=== PATIENT | male | born 1955 | race Caucasian/White ===

== ENCOUNTER → 2018-05-11 06:38 | Outpatient (CLI) | payer BC, SELFPAY ==
--- NOTE | 2018-05-11 | DI.MRI.S_ITS ---
PROCEDURE: MR HEAD/BRAIN WO/W CON INDICATIONS: MOLLARETS SYNDROME TECHNIQUE: Noncontrast axial T1 spin echo, axial T2 fast spin echo, sagittal and axial FLAIR, coronal T2 fast spin echo, axial gradient echo, axial diffusion and ADC through the brain. After the administration of contrast, axial and coronal T1 spin echo with fat saturation through the brain. COMPARISON: [facility], CT, HEAD WITHOUT CONTRAST, 01/04/2014, 0:18. [facility], CT, HEAD WITHOUT CONTRAST, 10/06/2017, 7:57. [facility], CT, HEAD WITHOUT CONTRAST, 09/27/2017, 0:53. FINDINGS: Image quality: Excellent. CSF spaces: Basal cisterns are patent. No extra-axial fluid collections. There is a left posterior fossa presumably arachnoid cyst, grossly unchanged dating back to head CT from 01/04/14. This measures 3.5 x 2.5 cm on axial image 7 series 8. No suspicious associated enhancement is seen. Ventricles are normal in size and shape. Brain: No midline shift. No intracranial bleeds or masses. No abnormal intracranial enhancement. There is cerebral volume loss for age. There is minimal periventricular white matter chronic small vessel ischemic change. The brainstem appears normal. Diffusion-weighted images demonstrate no acute ischemic insults. No chronic ischemic insults. Normal intravascular flow voids are present. Skull and face: Calvarial marrow is normal in signal. Orbits appear normal. Sinuses: Sinuses and mastoids appear clear. IMPRESSION: Unchanged left posterior fossa arachnoid cyst. No suspicious associated enhancement. No abnormal meningeal signal change or enhancement identified. Dictated by: Wicho Alexandre M.D. on 05/11/2018 at 8:21 Approved by: Wicho Alexandre M.D. on 05/11/2018 at 8:30
== END ==
PROVIDERS: PCP Internal Medicine; Visit Provider Psychiatry & Neurology Neurology
DX: G03.2 Benign recurrent meningitis [Mollaret] (principal); G93.0 Cerebral cysts
CPT/HCPCS: 70553

== ENCOUNTER → 2019-03-22 12:05 | Outpatient (CLI) | payer BC, SELFPAY ==
[2019-03-22 13:29] LABS: Cholesterol 177 mg/dL (140-199); HDL Cholesterol 39 mg/dL (40-60); LDL Cholesterol Calculated 103 mg/dL (<100); Triglycerides 177 mg/dL (35-150)
== END ==
PROVIDERS: PCP Internal Medicine; Visit Provider Internal Medicine Cardiovascular Disease
DX: I10 Essential (primary) hypertension (principal)
CPT/HCPCS: 36415; 80061

== ENCOUNTER 2019-06-22 22:18 | Inpatient (IN) | payer BC, SELFPAY ==
[2019-06-22 22:54] VITALS: BP 135/79; PULSE 79; RESP 18; TEMP 36.7; O2SAT 94; BMI 29.9
--- NOTE | 2019-06-22 23:00 | DI.RAD.S_ITS ---
PROCEDURE: XR CHEST 1V INDICATIONS: fever TECHNIQUE: One view of the chest was acquired. COMPARISON: [facility], , CHEST FOR PICC PLACEMENT, 10/06/2017, 16:34. FINDINGS: Surgical changes and devices: None. Lungs and pleura: Lungs are clear. No pleural effusions or pneumothorax. Mediastinum: Mediastinal contours appear normal. Heart size is normal. Bones and chest wall: No displaced fractures. No suspicious bony lesions. Overlying soft tissues appear unremarkable. IMPRESSION: 1. No acute cardiopulmonary disease. Dictated by: Tab Marques M.D. on 06/23/2019 at 8:32 Approved by: Tab Marques M.D. on 06/23/2019 at 8:32
[2019-06-22 23:15] LABS: Add Manual Diff / Slide Review NO; Basophils Absolute Auto 0 /uL (0-100); Basophils Percent Auto 0.5 % (0-2); Eosinophils Absolute Auto 100 /uL (0-450); Hematocrit 45.5 % (41-53); Hemoglobin 16.1 g/dL (13.5-17.5); Lymphocytes Absolute Auto 2500 /uL (1100-4500); Mean Corpuscular HGB Conc 35.2 % (30-36); Monocytes Absolute Auto 400 /uL (0-900); Monocytes Percent Auto 6.2 % (3-14); Neutrophils Absolute Auto 4000 /uL (1500-7000); Neutrophils Percent Auto 56.3 % (50-75); Platelet Count 187 X10^3/uL (150-400); Red Blood Cell Count 5.36 X10^6/uL (4.5-5.9); Red Cell Distribution Width 12.9 % (11.6-14.8); White Blood Cell Count 7.1 X10^3/uL (4.5-11.0)
[2019-06-22 23:25] VITALS: BP 123/74; PULSE 80; RESP 20; O2SAT 95
[2019-06-22] MEDS: SODIUM CHLORIDE 0.9% 1,000 ML 200 ML IV (23:25)
[2019-06-22 23:27] LABS: Lactate (Lactic Acid) 0.7 mmol/L (0.7-2.1)
[2019-06-22 23:28] LABS: Alanine Aminotransferase 39 IU/L (<50); Albumin Globulin Ratio 1.7 (1.0-2.8); Alkaline Phosphatase 68 U/L (38-126); Aspartate Aminotransferase 33 IU/L (17-59); BUN Creatinine Ratio 21.3 (6-22); Bilirubin Total 0.9 mg/dL (0.2-1.3); Blood Urea Nitrogen 17 mg/dL (9-20); Calcium 9.4 mg/dL (8.4-10.2); Carbon Dioxide 25 mmol/L (22-32); Chloride 104 mmol/L (98-107); Estimated Glomerular Filt Rate > 60.0 mL/min (>60); Globulin 2.4 g/dL (1.7-4.1); Glucose 109 mg/dL (80-110); HEMOLYSIS 16 (0-50); Potassium 3.8 mmol/L (3.4-5.1); Sodium 137 mmol/L (137-145); Total Protein 6.4 g/dL (6.3-8.2)
[2019-06-22 23:36] LABS: Procalcitonin < 0.05 ng/mL (<0.5)
[2019-06-22] MEDS: ONDANSETRON 4 MG/2 ML INJ IV (23:40)
[2019-06-22] MEDS: KETOROLAC 60 MG/2 ML VIAL 30 MG IV (23:48)
--- NOTE | 2019-06-22 23:49 | ED.HA ---
HPI - Headache General Chief Complaint: Headache Stated Complaint: states viral meningitis Time Seen by Provider: 06/22/19 23:43 Source: patient, family and old records reviewed Mode of arrival: Ambulatory Limitations: no limitations History of Present Illness HPI Narrative: This is a 63-year-old male who comes to the emergency department with complaint of headache, stiff neck and pain down his spinal cord. Patient states he has not had temperatures greater than 100.4 F but he has felt very warm. He states that he hasn't really been confused but he has felt a little bit off balance. Patient has been nauseated. He has not had active vomiting. He denies chest pain or shortness of breath. No major issues with bowel movements or urination. 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 Most recent was about a year ago he was on IV acyclovir and ultimately went home with a PICC line. He sees Dr. Portillo as his neurologist in [place] and Dr. Carter in with [facility]. Related Data Previous Rx's Medication Instructions Recorded lysine [L-Lysine] 1,000 mg PO Q8H 10 Days #0 cap 09/29/17 acyclovir sodium 1,000 mg IV Q8H #10 day 10/08/17 Allergies Allergy/AdvReac Type Severity Reaction Status Date / Time venlafaxine AdvReac Severe increased Verified 06/22/19 22:54 alcohol need, decreased motivation codeine AdvReac Mild N/V Verified 06/22/19 22:54 naproxen AdvReac Mild PANIC Verified 06/22/19 22:54 ATTACK Review of Systems Review of Systems ROS Unobtainable: All systems reviewed & are unremarkable except as noted in HPI and below Patient History Social History Smoking Status: Never smoker Smoking Status: Never smoker Substance Use Type: does not use Exam Narrative Exam Narrative: GEN: well nourished, well appearing male, alert and oriented x 3, patient appears to be in moderate distress. HEENT: Atraumatic, pupils are equal round reactive to light, extraocular movements are intact, positive for photophobia, nares are clear, TMs are clear with no fluid, there is no conjunctival pallor. Throat is clear without any exudates, erythema, tonsillar enlargement or uvular deviation, patient does have a stiff neck. And pain with flexion. HEART: Regular rate and rhythm without murmur, clicks, rubs. LUNGS:Lungs clear to auscultation, no wheezes, rales, crackles, chest moves symmetrically ABD:bowel sounds normal, soft, non-tender, no guarding, rebound, rigidity, no masses noted, no hepatosplenomegaly :No CVA tenderness MSCL: Non-tender, no muscle atrophy, muscles strength 5/5 upper and lower extremities, full range of motion, gait not tested. NEURO:CN 2-12 intact, sensation normal, reflexes 2/4 upper and lower extremities. SKIN: No rash, no petechiae or vesicles. Initial Vital Signs Initial Vital Signs: Vital Signs Temperature 98.1 F 06/22/19 22:54 Pulse Rate 79 06/22/19 22:54 Respiratory Rate 18 06/22/19 22:54 Blood Pressure 135/79 06/22/19 22:54 Pulse Oximetry 94 06/22/19 22:54 Procedures Lumbar Puncture Time Out Performed: Yes Patient Position: upright Skin Prep: Povidone-Iodine 1% Local Anesthetic: lidocaine 1% Amount of anesthesia used (mL): 3 Spinal Needle Gauge: 20G Interspace Used: L4-L5 Complications: Need to have other Practitioner Attempt and other (patient had near syncope, HR dropped to 30's and BP to 70's. Fluids and laid flat and patient improved. ) Scores GCS [place] coma scale eye opening: Spontaneous Katharina coma scale verbal response: Orientated Katharina coma scale motor response: Obey commands [place] coma scale total score: 15 Course Orders Ordered: ED Orders 06/22/19 22:35 Complete Blood Count AUTO DIFF Stat Comprehensive Metabolic Panel Stat Lactate (Lactic Acid) Stat Procalcitonin Stat 06/22/19 23:00 XR chest 1V Stat 06/22/19 23:20 Blood Culture Stat 06/22/19 23:50 CT head/brain wo con Stat 06/23/19 02:45 CSF culture Stat Cell Count w Diff CSF Stat Glucose CSF Stat HOLD TUBE CSF Stat Meningitis Panel (Film Array) Stat Total Protein CSF Stat 06/23/19 04:45 Consult to Discharge Planning Routine 06/23/19 06:00 Basic Metabolic Panel Routine Complete Blood Count AUTO DIFF Routine Magnesium Routine Bisacodyl (Dulcolax) 10 mg PO DAILY PRN PRN Reason: Constipation Docusate Sodium (Colace) 100 mg PO BID PRN PRN Reason: Constipation Enoxaparin Sodium (Lovenox) 40 mg SUBCUT DAILY ADRIEL Sodium Chloride (Normal Saline 0.9%) 1,000 mls @ 150 mls/hr IV CONT ADRIEL Acyclovir 980 mg/ Dextrose 250 mls @ 250 mls/hr IV Q8H ADRIEL Ketorolac Tromethamine (Toradol) 30 mg IV Q6HR PRN PRN Reason: Pain, Severe (7-10) Stop: 06/28/19 04:43 Morphine Sulfate (Morphine) 2 mg IV Q4HR PRN PRN Reason: Pain, Moderate (4-6) Naloxone HCl (Narcan) 0.2 mg IV Q2MIN PRN PRN Reason: Opiate Reversal Ondansetron HCl (Zofran) 4 mg IV Q8HR PRN PRN Reason: Nausea And Vomiting Discontinued Medications Sodium Chloride (Normal Saline 0.9%) 1,000 mls @ 200 mls/hr IV CONT ADRIEL Last Infusion: 06/23/19 03:00 Dose: 0 mls/hr Documented by: Infusion: 06/23/19 02:22 Dose: 999 mls/hr Documented by: Admin: 06/22/19 23:25 Dose: 200 mls/hr Documented by: MATTHIEU Acyclovir 980 mg/ Dextrose 100 mls @ 100 mls/hr IV NOW ONE Stop: 06/23/19 00:06 Last Infusion: 06/23/19 02:20 Dose: 0 mls/hr Documented by: Admin: 06/23/19 00:51 Dose: 100 mls/hr Documented by: MEGA Ceftriaxone Sodium/Dextrose (Rocephin) 2 gm in 50 mls @ 100 mls/hr IV NOW ONE Stop: 06/23/19 00:36 Last Infusion: 06/23/19 01:00 Dose: 0 mls/hr Documented by: Admin: 06/23/19 00:26 Dose: 100 mls/hr Documented by: MEGA Vancomycin HCl/Dextrose (Vancomycin) 2,000 mg in 400 mls @ 200 mls/hr IV NOW ONE Stop: 06/23/19 02:06 Last Infusion: 06/23/19 05:16 Dose: 0 mls/hr Documented by: Admin: 06/23/19 02:18 Dose: 200 mls/hr Documented by: ANALILIA Sodium Chloride (Normal Saline 0.9%) 1,000 mls @ 200 mls/hr IV CONT ADRIEL Last Admin: 06/23/19 03:25 Dose: 200 mls/hr Documented by: MEGA Acyclovir 980 mg/ Dextrose 100 mls @ 100 mls/hr IV Q8H [facility] Ketorolac Tromethamine (Toradol) 30 mg IV NOW ONE Stop: 06/22/19 23:42 Last Admin: 06/22/19 23:46 Dose: Not Given Documented by: MATTHIEU Ketorolac Tromethamine (Toradol) 30 mg IV NOW ONE Stop: 06/22/19 23:46 Last Admin: 06/22/19 23:48 Dose: 30 mg Documented by: MATTHIEU Morphine Sulfate (Morphine) 4 mg IV NOW ONE Stop: 06/23/19 03:28 Last Admin: 06/23/19 03:34 Dose: 4 mg Documented by: ANALILIA Ondansetron HCl (Zofran) 4 mg IV NOW ONE Stop: 06/22/19 23:32 Last Admin: 06/22/19 23:40 Dose: 4 mg Documented by: MATTHIEU Vital Signs Vital signs: Vital Signs - 8 hr 06/22/19 22:54 06/22/19 23:25 06/23/19 00:00 Temperature 98.1 F Pulse Rate 79 80 74 Respiratory Rate 18 20 19 Blood Pressure 135/79 Blood Pressure [Left Arm] 123/74 125/72 Pulse Oximetry 94 95 95 06/23/19 00:30 06/23/19 01:00 06/23/19 02:05 Temperature Pulse Rate 78 78 89 Respiratory Rate 19 18 20 Blood Pressure Blood Pressure [Left Arm] 117/74 109/65 114/75 Pulse Oximetry 93 92 93 06/23/19 02:15 06/23/19 02:17 06/23/19 02:22 Temperature Pulse Rate 28 L 29 L 32 L Respiratory Rate 12 14 Blood Pressure Blood Pressure [Left Arm] 79/57 L 87/55 L 87/55 L Pulse Oximetry 91 96 06/23/19 02:24 06/23/19 02:27 06/23/19 02:30 Temperature Pulse Rate 50 L 60 74 Respiratory Rate Blood Pressure Blood Pressure [Left Arm] 87/57 L 89/58 L 88/56 L Pulse Oximetry 06/23/19 02:35 06/23/19 03:06 06/23/19 03:20 Temperature Pulse Rate 69 70 65 Respiratory Rate 15 15 18 Blood Pressure Blood Pressure [Left Arm] 101/54 L 98/58 L 95/55 L Pulse Oximetry 96 95 96 06/23/19 03:39 06/23/19 04:07 06/23/19 04:45 Temperature 97.7 F Pulse Rate 65 69 71 Respiratory Rate 16 16 15 Blood Pressure Blood Pressure [Left Arm] 98/59 L 93/54 L 90/53 L Pulse Oximetry 94 93 93 MDM - Headache Lab Data Attestation: I reviewed the patient's lab results. Result diagrams: 06/22/19 22:35 06/22/19 22:35 Labs: Lab Results 06/22/19 06/22/19 06/22/19 Range/Units 22:35 22:35 22:35 WBC 7.1 (4.5-11.0) X10^3/uL RBC 5.36 (4.5-5.9) X10^6/uL Hgb 16.1 (13.5-17.5) g/dL Hct 45.5 (41-53) % MCV 85.0 (80-100) fL MCH 30.0 (26-34) PG MCHC 35.2 (30-36) % RDW 12.9 (11.6-14.8) % Plt Count 187 (150-400) X10^3/uL Neut % (Auto) 56.3 (50-75) % Lymph % (Auto) 36.0 (25-40) % [place] % (Auto) 6.2 (3-14) % Eos % (Auto) 1.0 L (2-4) % Baso % (Auto) 0.5 (0-2) % Neut # (Auto) 4000 (6416-9960) /uL Lymph # (Auto) 2500 (4249-6577) /uL [place] # (Auto) 400 (0-900) /uL Eos # (Auto) 100 (0-450) /uL Baso # (Auto) 0 (0-100) /uL Sodium 137 (137-145) mmol/L Potassium 3.8 (3.4-5.1) mmol/L Chloride 104 (98-107) mmol/L Carbon Dioxide 25 (22-32) mmol/L BUN 17 (9-20) mg/dL Creatinine 0.80 (0.66-1.25) mg/dL Estimated GFR > 60.0 (>60) mL/min BUN/Creatinine Ratio 21.3 (6-22) Glucose 109 (80-110) mg/dL Lactate (0.7-2.1) mmol/L Calcium 9.4 (8.4-10.2) mg/dL Total Bilirubin 0.9 (0.2-1.3) mg/dL AST 33 (17-59) IU/L ALT 39 (<50) IU/L Alkaline Phosphatase 68 (38-126) U/L Total Protein 6.4 (6.3-8.2) g/dL Albumin 4.0 (3.5-5.0) g/dL Globulin 2.4 (1.7-4.1) g/dL Albumin/Globulin Ratio 1.7 (1.0-2.8) Procalcitonin < 0.05 (<0.5) ng/mL CSF Tube Number CSF Volume CSF Appearance (Clear) CSF Color (Colorless) CSF WBC (0-5) MONO/uL CSF RBC RBC /uL CSF Mononuclear WBCs % CSF Polynuclear WBCs % CSF Glucose (40-70) mg/dL CSF Total Protein (12-60) mg/dL CSF C.neoform/gat PCR (Not Detect) CSF CMV DNA (PCR) (Not Detect) CSF Enterovirus (PCR) (Not Detect) CSF E. coli (PCR) (Not Detect) CSF H. influenzae (PCR) (Not Detect) CSF HSV I (PCR) (Not Detect) CSF HSV II (PCR) (Not Detect) CSF HHV 6 (PCR) (Not Detect) CSF L.monocytogenes PCR (Not Detect) CSF N. meningitidis PCR (Not Detect) CSF Parechovirus (PCR) (Not Detect) CSF S. agalactiae (PCR) (Not Detect) CSF S. pneumoniae (PCR) (Not Detect) CSF VZV (PCR) (Not Detecte) 06/22/19 06/23/19 06/23/19 Range/Units 22:35 02:45 02:45 WBC (4.5-11.0) X10^3/uL RBC (4.5-5.9) X10^6/uL Hgb (13.5-17.5) g/dL Hct (41-53) % MCV (80-100) fL MCH (26-34) PG MCHC (30-36) % RDW (11.6-14.8) % Plt Count (150-400) X10^3/uL Neut % (Auto) (50-75) % Lymph % (Auto) (25-40) % [place] % (Auto) (3-14) % Eos % (Auto) (2-4) % Baso % (Auto) (0-2) % Neut # (Auto) (3024-3157) /uL Lymph # (Auto) (9320-2601) /uL [place] # (Auto) (0-900) /uL Eos # (Auto) (0-450) /uL Baso # (Auto) (0-100) /uL Sodium (137-145) mmol/L Potassium (3.4-5.1) mmol/L Chloride (98-107) mmol/L Carbon Dioxide (22-32) mmol/L BUN (9-20) mg/dL Creatinine (0.66-1.25) mg/dL Estimated GFR (>60) mL/min BUN/Creatinine Ratio (6-22) Glucose (80-110) mg/dL Lactate 0.7 (0.7-2.1) mmol/L Calcium (8.4-10.2) mg/dL Total Bilirubin (0.2-1.3) mg/dL AST (17-59) IU/L ALT (<50) IU/L Alkaline Phosphatase (38-126) U/L Total Protein (6.3-8.2) g/dL Albumin (3.5-5.0) g/dL Globulin (1.7-4.1) g/dL Albumin/Globulin Ratio (1.0-2.8) Procalcitonin (<0.5) ng/mL CSF Tube Number 2 CSF Volume 2.0 ml CSF Appearance Clear (Clear) CSF Color Colorless (Colorless) CSF WBC 44 H (0-5) MONO/uL CSF RBC 7 RBC /uL CSF Mononuclear WBCs 46 % CSF Polynuclear WBCs 54 % CSF Glucose 56 (40-70) mg/dL CSF Total Protein 91 H (12-60) mg/dL CSF C.neoform/gat PCR Not detected (Not Detect) CSF CMV DNA (PCR) Not detected (Not Detect) CSF Enterovirus (PCR) Not detected (Not Detect) CSF E. coli (PCR) Not detected (Not Detect) CSF H. influenzae (PCR) Not detected (Not Detect) CSF HSV I (PCR) Not detected (Not Detect) CSF HSV II (PCR) Detected H (Not Detect) CSF HHV 6 (PCR) Not detected (Not Detect) CSF L.monocytogenes PCR Not detected (Not Detect) CSF N. meningitidis PCR Not detected (Not Detect) CSF Parechovirus (PCR) Not detected (Not Detect) CSF S. agalactiae (PCR) Not detected (Not Detect) CSF S. pneumoniae (PCR) Not detected (Not Detect) CSF VZV (PCR) Not detected (Not Detecte) Imaging Data CT scan - head: Radiologist's impression: No acute intracranial abnormality. Age-appropriate exam. Left posterior fossa parasagittal recommend cyst measuring 2.7 x 3.4 x 3.3 cm this is likely incidental Chest x-ray: My impression: Acute process, normal mediastinum, no infiltrate. No cardiomegaly. No fracture. No pneumothorax. [facility] Narrative Medical decision making narrative: Patient comes to the [facility] with concern for viral meningitis, patient states he has had HSV in the past. He states it was HSV 2. He states he is having similar symptoms with headaches, pain down his spine. He hasn't had fevers greater 100.4 F but has felt warm to and hot. Patient CSF does show a positive HSV 2, total protein is 91, WBCs are 44, RBCs are 7 with mononuclear is a 46 and poly new dealer WBCs of 54 and a glucose of 56. Patient's procalcitonin is negative, CBC is in normal range, coags and CMP also do not show major changes. Lactate is 0.7 Patient in have what is likely a vagal episode during lumbar puncture and dropped his heart rate to the 30s and then his blood pressure into the 70s. After lying flat this improved. Anesthesia was asked to come attempt lumbar puncture after this and patient tolerated the procedure well. Patient has had had lower pressures in the 80s since but this is post morphine and maybe secondary to this. Patient is alert and awakens easily. He does fall asleep. Spoke with a nurse practitioner Viral Jaramillo the hospitalist who accepts. I did share patient's specialty doctors. Discharge Plan Departure Patient Disposition: Admitted As Inpatient Clinical Impression: 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 Referrals: Ashley Lovelace MD [Primary Care Provider] -
--- NOTE | 2019-06-22 23:50 | DI.CT.S_ITS ---
PROCEDURE: CT HEAD/BRAIN WO CON INDICATIONS: headache, hx of viral meningitis, hsv 2 TECHNIQUE: Noncontrast 4.5 mm thick angled axial sections acquired from the foramen magnum to the vertex, with coronal and sagittal reformats. For radiation dose reduction, the following was used: automated exposure control, adjustment of mA and/or kV according to patient size. COMPARISON: [facility], CT, HEAD WITHOUT CONTRAST, 10/06/2017, 7:57. FINDINGS: Image quality: Excellent. CSF spaces: Basal cisterns are patent. Ventricles are normal in size and shape. Within the posterior fossa, there is a left paracentral oval cystic collection measuring up to approximately 8.7 x 2.4 cm compatible with arachnoid cyst which appears stable in size compared to the prior study. Brain: No intracranial hemorrhage or mass. [place]-white matter interface is preserved. Skull and face: Calvarium and visualized facial bones are intact, without suspicious lesions. Sinuses: Visualized sinuses and mastoids are clear. IMPRESSION: 1. No acute intracranial abnormality. 2. Stable size of a probable arachnoid cyst in the posterior fossa. Dictated by: Tab Marques M.D. on 06/23/2019 at 7:57 Approved by: Tab Marques M.D. on 06/23/2019 at 8:00
[2019-06-23] VITALS (29 sets, daily range): BP systolic 79–145; BP diastolic 50–75; PULSE 28–89; RESP 12–22; TEMP 36.3–37.8; O2SAT 91–99; BMI 31.4
[2019-06-23] MEDS: CEFTRIAXONE 2 GM/50 ML FROZ.PIGGY IV (00:26)
[2019-06-23] MEDS: WATER IV ×3 (00:51→17:13)
[2019-06-23] MEDS: ACYCLOVIR IV ×3 (00:51→17:13)
[2019-06-23] MEDS: DEXTROSE 5% IV ×3 (00:51→17:13)
[2019-06-23] MEDS: VANCOMYCIN 2,000 MG/400 ML PIGGYBACK 200 MG IV (02:18)
--- NOTE | 2019-06-23 02:24 | PC.NURSE ---
Addendum entered by Pricilla Damian R.N. 06/23/19 02:31: Normal saline rate increased to [address] Wren. Original Note: pt was getting an LP with Dr. Wren, Rn standby. pt started to complain of cold sweats and then reported he felt like he was going to pass out. Pt's HR dropped to 29, color was pale, cold sweats, BP decreased to 79/57. pt was put flat after Lp needle removed immediately after symptoms. pt is currently flat, reports he is feeling better. Dr. Wren at bedside.
[2019-06-23 03:05] LABS: Glucose CSF 56 mg/dL (40-70); Total Protein CSF 91 mg/dL (12-60)
[2019-06-23] MEDS: SODIUM CHLORIDE 0.9% 1,000 ML 200 ML IV (03:25)
--- NOTE | 2019-06-23 03:28 | PC.NURSE ---
Assisted Anethesia doctor with Lp. pt tolerated well, specimens hand carried to the lab,
[2019-06-23] MEDS: MORPHINE 4 MG/ML INJ IV (03:34)
[2019-06-23 03:52] LABS: Appearance CSF Clear (Clear); CSF Tube Number 2; CSF Tube Volume 2.0 mL; Color CSF Colorless (Colorless); Mononuclear WBC CSF 46 %; Red Blood Cell CSF 7 RBC /uL; White Blood Cell CSF 44 MONO/uL (0-5)
[2019-06-23 03:53] LABS: Polynuclear WBC CSF 54 %
[2019-06-23 03:55] LABS: HOLD TUBE CSF YES
[2019-06-23 04:33] LABS: Cryptococcus neoformans/gattii Not Detected (Not Detect); Enterovirus Not Detected (Not Detect); Escherichia coli K1 Not Detected (Not Detect); Haemophilus influenzae Not Detected (Not Detect); Herpes simplex virus 1 Not Detected (Not Detect); Herpes simplex virus 2 Detected (Not Detect); Human herpesvirus 6 Not Detected (Not Detect); Human parechovirus Not Detected (Not Detect); Listeria monocytogenes Not Detected (Not Detect); Neisseria meningitidis Not Detected (Not Detect); Streptococcus agalactiae Not Detected (Not Detect); Streptococcus pneumoniae Not Detected (Not Detect); Varicella Zoster Virus Not Detected (Not Detecte)
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
[2019-06-23] MEDS: SODIUM CHLORIDE 0.9% 1,000 ML 150 ML IV ×2 (05:50→16:08)
[2019-06-23] MEDS: KETOROLAC 30 MG/ML VIAL IV ×3 (06:54→22:21)
[2019-06-23] MEDS: MORPHINE 2 MG/ML INJ IV ×2 (09:51→16:28)
[2019-06-23] MEDS: ENOXAPARIN 40 MG/0.4 ML SYRINGE SUBCUT (10:05)
[2019-06-23] MEDS: ONDANSETRON 4 MG/2 ML INJ IV (11:05)
--- NOTE | 2019-06-23 12:18 | PC.NURSE ---
Addendum entered by Felicita Gilliam R.N. 06/23/19 14:30: Pt reports pain control has been somewhat effective, rates [place] 5-6/10 currently. Toradol given per Emar. Requests grouped care to attempt rest breaks, will be transfering to Acute care. Report called into [facility]. Per Dr Eaton, Pt is no longer to be on Tele. Original Note: Am Shift Pt is A/o up SBA in room, Seizure precautions in place, nausea controlled until 1120, x1 emesis dark liquid. Zofran given with good effect. Toradol and Morphine given for [place] pain. Photosensitive. VSS. Tele in place NSR. at bedside. Discussed outpatient infusion and PICC from previous flare, and eager to plan d/c accordingly when pt medically stable.
[2019-06-23 13:11] LABS: Add Manual Diff / Slide Review NO; Basophils Absolute Auto 0 /uL (0-100); Basophils Percent Auto 0.4 % (0-2); Eosinophils Absolute Auto 0 /uL (0-450); Eosinophils Percent Auto 0.3 % (2-4); Hemoglobin 15.1 g/dL (13.5-17.5); Lymphocytes Absolute Auto 1500 /uL (1100-4500); Lymphocytes Percent Auto 22.6 % (25-40); Mean Corpuscular HGB Conc 35.1 % (30-36); Mean Corpuscular Hemoglobin 30.1 PG (26-34); Mean Corpuscular Volume 85.6 fL (80-100); Monocytes Absolute Auto 400 /uL (0-900); Monocytes Percent Auto 6.1 % (3-14); Neutrophils Absolute Auto 4700 /uL (1500-7000); Neutrophils Percent Auto 70.6 % (50-75); Platelet Count 159 X10^3/uL (150-400); Red Blood Cell Count 5.02 X10^6/uL (4.5-5.9); Red Cell Distribution Width 12.8 % (11.6-14.8); White Blood Cell Count 6.7 X10^3/uL (4.5-11.0)
[2019-06-23 13:16] LABS: Blood Urea Nitrogen 16 mg/dL (9-20); Calcium 8.7 mg/dL (8.4-10.2); Carbon Dioxide 27 mmol/L (22-32); Chloride 106 mmol/L (98-107); Estimated Glomerular Filt Rate > 60.0 mL/min (>60); Glucose 118 mg/dL (80-110); HEMOLYSIS < 15 (0-50); Magnesium 2.1 mg/dL (1.6-2.3); Potassium 4.3 mmol/L (3.4-5.1); Sodium 141 mmol/L (137-145)
[2019-06-23 13:18] LABS: Bacteria Urine None Seen
[2019-06-23 13:30] LABS: Appearance Urine UA CLEAR; Bilirubin Urine UA NEGATIVE (NEGATIVE); Color Urine UA YELLOW; Glucose Urine UA NEGATIVE (Negative); Ketones Urine UA NEGATIVE (NEGATIVE); Leukocyte Esterase Urine UA NEGATIVE (NEGATIVE); Nitrite Urine UA NEGATIVE (Negative); Occult Blood Urine UA NEGATIVE (Negative); Protein Urine UA NEGATIVE (Negative); Specific Gravity Urine UA 1.015 (1.000-1.035); Urobilinogen Urine UA 0.2 E.U./dL (0.2); pH Urine UA 5.5 (4.5-8.0)
[2019-06-23 14:13] LABS: Culture Indicated Urine Cult Not Indicated; RBC Urine 0-1/HPF (0-5/HPF); Squamous Epithelial Cell Urine 0-1 /HPF (0-5/HPF); WBC Urine 0-1/HPF (0-5/HPF)
--- NOTE | 2019-06-23 14:41 | PM.EVENT ---
Event Note Date Patient Seen: 06/23/19 Event Note: The patient is a 63-year-old male with a history of recurrent HSV meningitis. He was admitted to the hospital yesterday with headache fever and neck stiffness. His CSF fluid confirmed 44 WBCs, PCR which was positive for HSV. The patient has been placed on 10 milligrams/kilogram every 8 hours for HSV meningitis. He continues to have some headache. He has some nausea. Patient reports he has had at least 3 episodes per year over the past several years. The patient continues to have some low-grade fever and will be started on Tylenol for this as well. The patient will continue on his usual home medications to include both indomethacin and losartan. Will follow-up with infectious disease from [place] for any additional recommendations.
[2019-06-23] MEDS: ACETAMINOPHEN 325 MG TABLET 650 MG PO (14:48)
--- NOTE | 2019-06-23 14:50 | PC.NURSE ---
1410 Pt arrived from ICU via w/c to room 214. Pt mis A&Ox3. Able to get self into the bed. IVF infusing, Pt denies pain. 1430 Pt on seizure precautions, bed rails padded. Pt temp 100.1, Dr Eaton updated, orders for Tylenol written. Pt given Tylenol 1450. SCD BLE on
--- NOTE | 2019-06-23 16:19 | CM.DPNOTE ---
DCPlanning note: Case received and discussed with CM/DCP team. RN Ashley agrees to do the initial assessment: see her pending notes. Pt was initially in ICU, Dr. Eaton noted in Team Rounds that he was floor care and this afternoon he did move to rm 214.
--- NOTE | 2019-06-23 17:07 | CM.DANOTE ---
DCP assessment: EMR reviewed: Patient is a 63 yr old male who was admitted for viral meningitis. PCP is CAITLYN Lovelace. CM/RN met with patient at the bedside and explained role. Patient was alert and oriented x3 during CM/RN meeting. patient currently lives with is Flora in a single level home in [place]. Patient has a hx of reoccuring Viral Meningitis infections. patient stated he has had 6 occurrences this year alone. Plan is for patient to get a PICC line placed tomorrow and d/c with home infusions for remainder IV infusions set up. Insurance: [employer] 2nd: self pay. Plan: DC home with home infusions for IV medications when ready. patient needs PICC line placed prior to d/c. CM department will follow up tomorrow 06/24/2019 to make sure home infusions is set up for when patient does D/C Ashley Lyn RN Discharge Planning/Care Management Advanced directive, confirm from FAMILY Start: 06/23/19 12:17 Freq: Q24H Status: Active Protocol: Document 06/23/19 12:17 NC (Rec: 06/23/19 12:18 NC [id number]) Advance Directive, confirm on record Time 12:18 Person contacted Copy received No CM Discharge Assessment Start: 06/23/19 16:44 Freq: Status: Active Protocol: Document 06/23/19 16:44 HS (Rec: 06/23/19 16:55 HS [id number]) Discharge Planning Assessment Assigned Surgical Coordinator Ashley Lyn RN DPOA/Assigned Designee Name Flora Enriquez Advance Directives? No Advance Directives on File No History Provided By Patient Has Patient been admitted in last 30 No days? Prior Living Arrangements House Household Members spouse Type of transporation used prior to Relies on Others admit Independent with ADL's Yes Is patient alert and oriented? Yes Caregiver for Another No Discharge Plan Home Referrals Initiated Other Additional Comment infusion solutions. Whiteboard Updated in Patient Room with Yes name and ext. # of Surgical Coordinator Review Status In Process Next Review Type Continued Stay Review
[2019-06-23] MEDS: LOSARTAN 50 MG TABLET 100 MG PO (21:10)
[2019-06-24] MEDS: SODIUM CHLORIDE 0.9% 1,000 ML 150 ML IV ×2 (00:12→08:15)
[2019-06-24] MEDS: MORPHINE 2 MG/ML INJ IV ×3 (00:37→11:03)
[2019-06-24] MEDS: WATER IV ×3 (00:38→17:24)
[2019-06-24] MEDS: ACYCLOVIR IV ×3 (00:38→17:24)
[2019-06-24] MEDS: DEXTROSE 5% IV ×3 (00:38→17:24)
[2019-06-24 05:25] VITALS: BP 136/75; PULSE 77; RESP 16; TEMP 37.6; O2SAT 92
[2019-06-24] MEDS: ONDANSETRON 4 MG/2 ML INJ IV (05:45)
[2019-06-24] MEDS: SODIUM CHLORIDE 0.9% FLUSH 10 ML IV ×2 (08:25→17:24)
[2019-06-24] MEDS: DOCUSATE 100 MG CAPSULE PO (08:29)
[2019-06-24] MEDS: LOSARTAN 50 MG TABLET 100 MG PO (08:29)
[2019-06-24] MEDS: ENOXAPARIN 40 MG/0.4 ML SYRINGE SUBCUT (08:30)
[2019-06-24] MEDS: ACETAMINOPHEN 325 MG TABLET 650 MG PO (08:30)
[2019-06-24] MEDS: INDOMETHACIN 25 MG CAPSULE PO ×3 (08:32→17:23)
[2019-06-24 09:00] VITALS: BP 132/74; PULSE 74; RESP 17; TEMP 36.7; O2SAT 91
--- NOTE | 2019-06-24 09:46 | PC.NURSE ---
Addendum entered by Isi Carpio R.N. 06/24/19 13:02: PAIN - states the earlier morphine and indomethacin helped him relax and declines, given the scheduled indomethacin after to po lunch. Original Note: AM NOTE - pt is awake, speech clear, has ongoing, chronic headache discomfort, 7 on scale 0/10, no medications are really effective, discussed morphine, added tylenol and indomethicine this am when able tolerate breakfast, describes a hx of l foot nerve like discomfort several days prior to adm and then headache, hr 68, +bt, added stool softener this am.
--- NOTE | 2019-06-24 11:38 | PM.PN.1 ---
Subjective Subjective Date Patient Seen: 06/24/19 Interval history: Will Castrejon is a 63-year-old right-handed male with a past medical history significant for recurrent HSV II meningitis, hypertension, remote history of atrial fibrillation not anticoagulated and kidney stones who presented to the ED with headache stiff neck and back pain. The patient is resting in bed. He does not appear uncomfortable. He continues to endorse mild neck stiffness and headache which he currently rates a + 7/10 in severity and controlled with morphine. He also complains of mild restrictive feeling when breathing in deeply. He has no other complaints and denies ear pain, vision changes, lightheadedness or dizziness, rhinitis, sore throat, cough, shortness of breath, chest pain, abdominal pain, nausea, vomiting, fever, chills, dysuria, or diarrhea. He has not had a bowel movement since admission and a bowel regimen has been implemented. He is voiding without difficulty. He is up ambulating independently without assistance. Exam Vital Signs (past 8 hours): - 06/24/19 05:25 06/24/19 09:00 Temperature 99.6 F 98.1 F Pulse Rate 77 74 Respiratory Rate 16 17 Blood Pressure 136/75 132/74 Pulse Oximetry 92 91 Oxygen Delivery Method Room Air Oxygen Flow Rate 0 Narrative Exam Narrative: General: Older gentleman lying in bed and in no acute distress, well-developed, well-nourished, appropriately interactive. HEENT: Normocephalic, atraumatic. External ears without defect. Pupils equal, round, and reactive to light. Anicteric sclerae, moist conjunctivae, and no lid lag. Oropharynx free of erythema and cobble stoning with moist mucosa. Neck: Supple with full range of motion. No significant noticeable neck stiffness. No jugular venous distension. No lymphadenopathy or thyromegaly. Cardiovascular: Regular rate and rhythm without murmurs, rubs, or gallops appreciated. Pulmonary: Clear to auscultation bilaterally without crackles, wheezes, or rhonchi. Normal respiratory effort with no use of accessory muscles. Abdomen: Soft, bowel tones present, nontender, nondistended. No hepatosplenomegaly or masses appreciated. Extremities: No clubbing, cyanosis, or edema. Skin: Normal temperature, turgor, and texture; no rash, ulcers, or subcutaneous nodules appreciated. Neurological: Cranial nerves grossly intact. No focal neurological deficits. Patient endorses neck stiffness but does not demonstrate meningeal symptoms. Psychiatric: Normal mood and flat affect. Alert and oriented to person, place, and time. Objective Labs Result Diagrams: 06/25/19 07:35 06/25/19 07:35 Labs: Laboratory Results - last 24 hr 06/23/19 06/23/19 06/23/19 12:56 12:56 13:17 WBC 6.7 RBC 5.02 Hgb 15.1 Hct 43.0 MCV 85.6 MCH 30.1 MCHC 35.1 RDW 12.8 Plt Count 159 Neut % (Auto) 70.6 Lymph % (Auto) 22.6 L [place] % (Auto) 6.1 Eos % (Auto) 0.3 L Baso % (Auto) 0.4 Neut # (Auto) 4700 Lymph # (Auto) 1500 [place] # (Auto) 400 Eos # (Auto) 0 Baso # (Auto) 0 Sodium 141 Potassium 4.3 Chloride 106 Carbon Dioxide 27 BUN 16 Creatinine 0.80 Estimated GFR > 60.0 BUN/Creatinine Ratio 20.0 Glucose 118 H Calcium 8.7 Magnesium 2.1 Urine Color Yellow Urine Appearance Clear Urine pH 5.5 Ur Specific [place] 1.015 Urine Protein Negative Urine Glucose (UA) Negative Urine Ketones Negative Urine Occult Blood Negative Urine Nitrate Negative Urine Bilirubin Negative Urine Urobilinogen 0.2 Ur Leukocyte Esterase Negative Urine RBC 0-1/hpf Urine WBC 0-1/hpf Ur Squamous Epith Cells 0-1 /hpf Urine Bacteria None seen Ur Culture Indicated? Cult not indicated Assessment & Plan Assessment & Plan narrative: Will Castrejon is a 63-year-old right-handed male with a past medical history significant for recurrent HSV II meningitis, hypertension, remote history of atrial fibrillation not anticoagulated and kidney stones who presented to the ED with headache stiff neck and back pain. 1. Recurrent HSV II meningitis ([place] Meningitis), acute on chronic, present on admission. Active. -Patient reports this is a typical presentation with symptoms beginning 1 day ago and becoming progressive. -LP performed in the ED demonstrated HSV II meningitis. -Continue acyclovir 10 mg/kg every 8 hours and indomethacin 25 mg up to 3 times daily with food to decrease cytokine release. -Continue supportive care with acetaminophen 650 every 6 hours, Toradol 30 mg IV every 6 hours or morphine 2 mg IV every 4 hours all as needed for pain and Zofran 4 mg every 6 hours as needed for nausea. -Patient is under the care of Infectious Disease in [place], Dr. Perez. Discussed patient with Dr. Perez who discontinued prophylactic acyclovir as this did not prevent or delay recurrence and recommended continuing IV acyclovir while hospitalized and discharging on bowel cycle of ear 1 g 3 times daily for 2 week total course. 2. Newly diagnosed seizure disorder, absence seizures, present on admission. Stable. -Patient has had no evidence of seizure during hospitalization thus far. -Patient is under the care of Neurology in [place], Dr. Portillo, who had prescribed Keppra but patient has declined medication due to concern for side effects. -Patient is not currently treated with antiepileptics. -Continue seizure precautions. 3. Hypertension, chronic, present on admission. Stable. -Patient blood pressure on admission was 135/79 with SBP dropping to 70's briefly during vasovagal episode. -Continue home losartan 100 mg daily. 4. Paroxysmal atrial fibrillation, chronic, present on admission. Stable. -Patient was in normal sinus rhythm on telemetry in ED. -Patient with past history of episodes of atrial fibrillation and has undergone a full cardiac evaluation with with Dr. Leigh without recurrence. -Patient denies chest pain, palpitations or complaints shortness of breath. Code Status: Full Code VTE prophylaxis: SCDs and Lovenox Disposition: Patient likely to discharge in 1-2 days depending on improvement in headache. Quality VTE Deep Vein Thrombosis/Pulmonary Embolism Present on Admission: Yes
[2019-06-24 13:34] VITALS: BP 140/72; PULSE 73; RESP 17; TEMP 36.8; O2SAT 92
[2019-06-24 15:30] VITALS: BP 125/71; PULSE 60; RESP 18; TEMP 36.9; O2SAT 95
--- NOTE | 2019-06-24 15:43 | CM.DPC ---
DCP Cont: Went ahead and faxed information to [facility], in case patient needs to go home on IV antibiotics. Spoke to Travis at [facility], and he is reviewing insurance. Spoke to Dr. Poon during team rounds. She mentioned that patient may be able to go home on oral antibiotics. She was planning on speaking to Infectious Disease physician, and will let this hospice case manager know. Spoke to Dr. Poon, and she mentioned that she has spoken to Infectious Disease MD, and he should be able to go home on oral antibiotics. Gave Travis at [facility] an update. He will hold on to referral. He did mention that with patient's insurance, there is a 30% co-pay, and that he would have to pay approximately 200.00 a week. P: Travis at [facility] will hold on to referral. At this time, plan is home with oral antibiotics. Lesvia Juan RN/[employer] Operator
[2019-06-24 19:40] VITALS: BP 122/71; PULSE 62; RESP 18; TEMP 36.9; O2SAT 95
[2019-06-24 23:56] VITALS: BP 109/70; PULSE 64; RESP 16; TEMP 36.2; O2SAT 94
[2019-06-25] MEDS: ACYCLOVIR IV ×3 (01:07→17:58)
[2019-06-25] MEDS: SODIUM CHLORIDE 0.9% FLUSH 10 ML IV ×3 (01:07→19:31)
[2019-06-25] MEDS: WATER IV ×3 (01:07→17:58)
[2019-06-25] MEDS: DEXTROSE 5% IV ×3 (01:07→17:58)
[2019-06-25 06:00] VITALS: BP 130/71; PULSE 61; RESP 16; TEMP 36.4; O2SAT 95
[2019-06-25 08:00] LABS: Blood Urea Nitrogen 12 mg/dL (9-20); Calcium 8.8 mg/dL (8.4-10.2); Carbon Dioxide 27 mmol/L (22-32); Chloride 105 mmol/L (98-107); Estimated Glomerular Filt Rate > 60.0 mL/min (>60); Glucose 104 mg/dL (80-110); HEMOLYSIS 16 (0-50); Magnesium 1.9 mg/dL (1.6-2.3); Potassium 4.1 mmol/L (3.4-5.1); Sodium 138 mmol/L (137-145)
[2019-06-25 08:03] LABS: Add Manual Diff / Slide Review NO; Basophils Absolute Auto 0 /uL (0-100); Basophils Percent Auto 0.8 % (0-2); Eosinophils Absolute Auto 100 /uL (0-450); Hematocrit 42.7 % (41-53); Lymphocytes Absolute Auto 1600 /uL (1100-4500); Lymphocytes Percent Auto 32.2 % (25-40); Mean Corpuscular HGB Conc 35.1 % (30-36); Mean Corpuscular Volume 85.5 fL (80-100); Monocytes Absolute Auto 300 /uL (0-900); Monocytes Percent Auto 6.1 % (3-14); Neutrophils Absolute Auto 2900 /uL (1500-7000); Neutrophils Percent Auto 58.9 % (50-75); Platelet Count 150 X10^3/uL (150-400); Red Blood Cell Count 4.99 X10^6/uL (4.5-5.9); Red Cell Distribution Width 12.8 % (11.6-14.8); White Blood Cell Count 4.9 X10^3/uL (4.5-11.0)
[2019-06-25 08:17] LABS: Procalcitonin < 0.05 ng/mL (<0.5)
[2019-06-25 08:57] VITALS: BP 134/78; PULSE 64; RESP 18; TEMP 36.9; O2SAT 92
[2019-06-25] MEDS: LOSARTAN 50 MG TABLET 100 MG PO (09:20)
[2019-06-25] MEDS: ENOXAPARIN 40 MG/0.4 ML SYRINGE SUBCUT (09:20)
[2019-06-25] MEDS: INDOMETHACIN 25 MG CAPSULE PO ×3 (09:20→17:58)
--- NOTE | 2019-06-25 13:27 | PM.PN.1 ---
Subjective Subjective Date Patient Seen: 06/25/19 Interval history: Will Castrejon is a 63-year-old right-handed male with a past medical history significant for recurrent HSV II meningitis, hypertension, remote history of atrial fibrillation not anticoagulated and kidney stones who presented to the ED with headache stiff neck and back pain. The patient is resting in bed comfortably. He continues to endorse mild neck stiffness. His headache is improving and he currently rates a + 7/10 in severity. He has not required any morphine since yesterday evening. His nausea and lightheadedness have completely resolved. He endorses low back pain for which he is unsure if this is related to his meningitis or musculoskeletal from the bed. He has no other complaints and denies vision changes, lightheadedness or dizziness, rhinitis, sore throat, cough, shortness of breath, chest pain, abdominal pain, nausea, vomiting, fever, chills, dysuria, diarrhea, or constipation. He is voiding and eliminating without difficulty. He is up ambulating independently without assistance. Exam Vital Signs (past 8 hours): - 06/25/19 06:00 06/25/19 08:57 Temperature 97.5 F L 98.4 F Pulse Rate 61 64 Respiratory Rate 16 18 Blood Pressure 130/71 134/78 Pulse Oximetry 95 92 Oxygen Delivery Method Room Air Oxygen Flow Rate 0 Narrative Exam Narrative: General: Older gentleman lying in bed and in no acute distress, well-developed, well-nourished, appropriately interactive. HEENT: Normocephalic, atraumatic. External ears without defect. Pupils equal, round, and reactive to light. Anicteric sclerae, moist conjunctivae, and no lid lag. Oropharynx free of erythema and cobble stoning with moist mucosa. Neck: Supple with full range of motion. No significant noticeable neck stiffness. No jugular venous distension. No lymphadenopathy or thyromegaly. Cardiovascular: Regular rate and rhythm without murmurs, rubs, or gallops appreciated. Pulmonary: Clear to auscultation bilaterally without crackles, wheezes, or rhonchi. Normal respiratory effort with no use of accessory muscles. Abdomen: Soft, bowel tones present, nontender, nondistended. No hepatosplenomegaly or masses appreciated. Extremities: No clubbing, cyanosis, or edema. Skin: Normal temperature, turgor, and texture; no rash, ulcers, or subcutaneous nodules appreciated. Neurological: Cranial nerves grossly intact. No focal neurological deficits. Continues to have mild neck stiffness but no other meningeal symptoms. Psychiatric: Normal mood and flat affect. Alert and oriented to person, place, and time. Objective Labs Result Diagrams: 06/25/19 07:35 06/25/19 07:35 Labs: Laboratory Results - last 24 hr 06/25/19 06/25/19 06/25/19 07:35 07:35 07:35 WBC 4.9 RBC 4.99 Hgb 15.0 Hct 42.7 MCV 85.5 MCH 30.0 MCHC 35.1 RDW 12.8 Plt Count 150 Neut % (Auto) 58.9 Lymph % (Auto) 32.2 [place] % (Auto) 6.1 Eos % (Auto) 2.0 Baso % (Auto) 0.8 Neut # (Auto) 2900 Lymph # (Auto) 1600 [place] # (Auto) 300 Eos # (Auto) 100 Baso # (Auto) 0 Sodium 138 Potassium 4.1 Chloride 105 Carbon Dioxide 27 BUN 12 Creatinine 0.60 L Estimated GFR > 60.0 BUN/Creatinine Ratio 20.0 Glucose 104 Calcium 8.8 Magnesium 1.9 Procalcitonin < 0.05 Assessment & Plan Assessment & Plan narrative: Will Castrejon is a 63-year-old right-handed male with a past medical history significant for recurrent HSV II meningitis, hypertension, remote history of atrial fibrillation not anticoagulated and kidney stones who presented to the ED with headache stiff neck and back pain. 1. Recurrent HSV II meningitis (Mollaret Meningitis), acute on chronic, present on admission. Active. -Patient reports this is a typical presentation with symptoms beginning 1 day ago and becoming progressive. -LP performed in the ED demonstrated HSV II meningitis. -Continue acyclovir 10 mg/kg every 8 hours and indomethacin 25 mg up to 3 times daily with food to decrease cytokine release. -Continue supportive care with acetaminophen 650 every 6 hours, Toradol 30 mg IV every 6 hours or morphine 2 mg IV every 4 hours all as needed for pain and Zofran 4 mg every 6 hours as needed for nausea. -Patient is under the care of Infectious Disease in [place], Dr. Perez. Discussed the patient with Dr. Perez who relayed that she discontinued prophylactic acyclovir as this did not prevent or delay recurrence and recommended continuing IV acyclovir while hospitalized and discharging on valacyclovir 1 g 3 times daily for a 2 week total course. 2. Newly diagnosed seizure disorder, absence seizures, present on admission. Stable. -Patient has had no evidence of seizure during hospitalization thus far. -Patient is under the care of Neurology in [place], Dr. Portillo, who had prescribed Keppra but patient has declined medication due to concern for side effects. -Patient is not currently treated with antiepileptics. -Continue seizure precautions. 3. Hypertension, chronic, present on admission. Stable. -Patient blood pressure on admission was 135/79 with SBP dropping to 70's briefly during vasovagal episode. -Continue home losartan 100 mg daily. 4. Paroxysmal atrial fibrillation, chronic, present on admission. Stable. -Patient was in normal sinus rhythm on telemetry in ED. -Patient with past history of episodes of atrial fibrillation and has undergone a full cardiac evaluation with with Dr. Leigh without recurrence. -Patient denies chest pain, palpitations or complaints shortness of breath. Code Status: Full Code VTE prophylaxis: SCDs and Lovenox Disposition: Patient likely to discharge possibly tomorrow at his symptoms continue to improve. Quality VTE Deep Vein Thrombosis/Pulmonary Embolism Present on Admission: Yes
[2019-06-25 13:36] VITALS: BP 126/73; PULSE 63; RESP 16; TEMP 37; O2SAT 93
--- NOTE | 2019-06-25 14:52 | PC.NURSE ---
Neuro: Feels better today, headache less, not gone, didn't want to take anything for it. Still sensative to light but not as much as he was yesterday. Spouse at bedside. Pt verb his feelings regarding having a chronic condition such as viral meningitis. After 30 years he is tired of it. Pt did take a shower today and has been up in the room more. Cont w/poc.
[2019-06-25 15:20] VITALS: BP 134/80; PULSE 68; RESP 18; TEMP 37.1; O2SAT 95
[2019-06-25 20:00] VITALS: BP 131/77; PULSE 64; RESP 18; TEMP 36.8
[2019-06-25 22:10] VITALS: O2SAT 94
[2019-06-26] VITALS: BP 134/78; PULSE 60; RESP 16; TEMP 36.3; O2SAT 96
[2019-06-26] MEDS: ACYCLOVIR IV ×2 (01:07→09:37)
[2019-06-26] MEDS: WATER IV ×2 (01:07→09:37)
[2019-06-26] MEDS: DEXTROSE 5% IV ×2 (01:07→09:37)
[2019-06-26 05:00] VITALS: BP 135/80; PULSE 59; RESP 16; TEMP 36.8; O2SAT 96
[2019-06-26 07:25] VITALS: BP 132/88; PULSE 59; RESP 16; TEMP 36.6; O2SAT 95
[2019-06-26] MEDS: ENOXAPARIN 40 MG/0.4 ML SYRINGE SUBCUT (09:37)
[2019-06-26] MEDS: INDOMETHACIN 25 MG CAPSULE PO (09:37)
[2019-06-26] MEDS: LOSARTAN 50 MG TABLET 100 MG PO (09:37)
--- NOTE | 2019-06-26 10:35 | P.DS_ITS ---
History of Present Illness History of Present Illness Date Patient Seen: 06/25/19 Chief complaint: states viral meningitis Narrative: Written by Terrance RODAS: Mr. Will Castrejon is a 63-year-old right-handed male with history significant for recurrent viral meningitis encephalitis hypertension remote history of atrial fibrillation not anticoagulated and kidney stones who presents to the ER with headache stiff neck and back pain. Patient states his symptoms began yesterday and became progressive. He reports having fevers and chills, nausea and vomiting. He reports a posterior headache with neck pain extending down his back. He has had associated photophobia. Reports having disequilibrium the last few days but not yesterday which she describes as a prodrome to developing meningitis. The patient is also been prescribed Keppra for absence seizures typically around 15 seconds in duration. He has told his neurologist he does not want to use the medication due to side effects. He is currently under the care of Dr. Portillo for Neurology and Dr. Carter for Infectious Disease. He has a remote history of atrial fibrillation and has undergone full cardiac workup with Dr. Leigh including 1 month continuous monitoring without identification of a clear arrhythmia. He has had no chest pain and denies palpitations. He has no shortness of breath or cough. Reports he is predisposed to pneumonia with impaired right diaphragm from an injury romero stained playing ice hockey. He reports no changes in bowel habits and no urinary symptoms. Upon arrival to the ER the patient was found to be afebrile a temperature 98.1?, heart rate of 79, blood pressure 135/79, respirations of 18 saturating 94% on air. Imaging was completed with a head CT which found no acute intracranial abnormalities an age-appropriate exam with a left paracentral posterior fossa arachnoid cyst measuring 2.7 by 3.4 x 3.3 cm, no midline shift, hydrocephalus, acute hemorrhage or infarct. Chest x-ray is obtained which shows no acute cardiopulmonary processes. Laboratory analysis stained which finds a white blood cell count of 7.1, hemoglobin of 16.1, hematocrit of 45.5 and platelets 187. His electrolytes are within limits and has a BUN of 17 with a creatinine is 0.8. His nonfasting glucose is 1 9. His LFTs within normal limits and procalcitonin is negative less than 0.05. And LP is performed during which time the patient had a vasovagal response with heart rate down to 29 and near-syncope with blood pressure dropping to 70s. Patient received fluid bolus with normalization of pressures. A 2nd attempt at LP was completed and sample obtained. CSF is found to be clear and colorless, WBCs are 44, RBCs are 7, mononuclear WBCs are 46 and poly nuclear WBCs are 54. Glucose is 56 and protein is 91. PCR evaluation the CSF reveals a positive finding for HSV 2. The patient is started in the ER on acyclovir 10 milligrams/kilogram and received initial empiric coverage for bacterial meningitis with vancomycin and ceftriaxone. He has received Toradol and morphine for pain and Zofran for nausea. The patient is admitted to the medicine service for HSV meningitis Discharge Providers Provider Date of admission: 06/23/19 06:27 Discharge Date: 06/26/19 Primary care physician: Ashley Lovelace MD Consults: 06/23/19 04:45 Consult to Discharge Planning Routine Comment: Discharge provider: Irene Poon DO Summary Hospital Course Discharge Diagnosis: 1. Recurrent HSV II meningitis (Mollaret Meningitis), acute on chronic, present on admission. Resolving. 2. Newly diagnosed seizure disorder, absence seizures, present on admission. Stable. 3. Hypertension, chronic, present on admission. Stable. 4. Paroxysmal atrial fibrillation, chronic, present on admission. Stable. Hospital Course: Will Castrejon is a 63-year-old right-handed male with a past medical history significant for recurrent HSV II meningitis, hypertension, remote history of atrial fibrillation not anticoagulated and kidney stones who presented to the ED with headache stiff neck and back pain. 1. Recurrent HSV II meningitis (Mollaret Meningitis), acute on chronic, present on admission. Resolving. -Patient presented with severe headache, neck stiffness, nausea, and lightheadedness which is his typical presentation with symptoms beginning day prior to admission and becoming progressive. Headaches significantly improved and patient discharged home. -LP performed in the ED demonstrated HSV II meningitis. -Continued supportive care with acetaminophen 650 every 6 hours, Toradol 30 mg IV every 6 hours or morphine 2 mg IV every 4 hours all as needed for pain and Zofran 4 mg every 6 hours as needed for nausea. -Patient is under the care of Infectious Disease in [place], Dr. Perez. Discussed the patient with Dr. Perez who relayed that she discontinued prophylactic acyclovir as this did not prevent or delay recurrence and recommended continuing IV acyclovir while hospitalized and discharging on valacyclovir 1 g 3 times daily for a 2 week total course. -Continued acyclovir 10 mg/kg every 8 hours and indomethacin 25 mg up to 3 times daily with food to decrease cytokine release. Discharge with prescription for valacyclovir 1 g 3 times daily for 11 additional days to complete 14 days total. Patient has indomethacin prescription at home. Discharge with temporary prescription for hydrocodone 5-325 mg as needed for severe headache. 2. Newly diagnosed seizure disorder, absence seizures, present on admission. Stable. -Patient has had no evidence of seizure during hospitalization thus far. -Patient is under the care of Neurology in [place], Dr. Portillo, who had prescribed Keppra but patient has declined medication due to concern for side effects. -Patient is not currently treated with antiepileptics. -Continued seizure precautions. 3. Hypertension, chronic, present on admission. Stable. -Patients blood pressure on admission was 135/79 with SBP dropping to 70's briefly during vasovagal episode. -Continued home losartan 100 mg daily. 4. Paroxysmal atrial fibrillation, chronic, present on admission. Stable. -Patient was in normal sinus rhythm on telemetry in ED. -Patient with past history of episodes of atrial fibrillation and has undergone a full cardiac evaluation with with Dr. Leigh without recurrence. -Patient denies chest pain, palpitations or complaints shortness of breath. Exam Vital Signs (past 8 hours): - 06/26/19 05:00 06/26/19 07:25 Temperature 98.2 F 97.8 F Pulse Rate 59 L 59 L Respiratory Rate 16 16 Blood Pressure 135/80 132/88 Pulse Oximetry 96 95 Oxygen Delivery Method Room Air Oxygen Flow Rate 0 Narrative Exam Narrative: General: Older gentleman lying in bed and in no acute distress, well-developed, well-nourished, appropriately interactive. HEENT: Normocephalic, atraumatic. External ears without defect. Pupils equal, round, and reactive to light. Anicteric sclerae, moist conjunctivae, and no lid lag. Oropharynx free of erythema and cobble stoning with moist mucosa. Neck: Supple with full range of motion. No significant noticeable neck stiffness. No jugular venous distension. No lymphadenopathy or thyromegaly. Cardiovascular: Regular rate and rhythm without murmurs, rubs, or gallops appreciated. Pulmonary: Clear to auscultation bilaterally without crackles, wheezes, or rhonchi. Normal respiratory effort with no use of accessory muscles. Abdomen: Soft, bowel tones present, nontender, nondistended. No hepatosplenomegaly or masses appreciated. Extremities: No clubbing, cyanosis, or edema. Skin: Normal temperature, turgor, and texture; no rash, ulcers, or subcutaneous nodules appreciated. Neurological: Cranial nerves grossly intact. No focal neurological deficits. Neck stiffness significantly improved and nearly unnoticeable. No other meningeal symptoms. Psychiatric: Normal mood and flat affect. Alert and oriented to person, place, and time. Objective Labs Result Diagrams: 06/25/19 07:35 06/25/19 07:35 Discharge Plan Discharge Plan Patient Disposition: Home Discharge comment: You are being discharged home. You had a flare of your Mollaret meningitis. You have been prescribed valacyclovir 1 g 3 times daily for an additional 11 days to complete 14 day course. You have also been given a temporary prescription for hydrocodone 5-325 mg every 6 hours as needed for severe headache. Please follow-up with your primary care physician and infectious disease doctors as previously scheduled. Try to stay well hydrated and get plenty of rest. Highly recommend you wear a mask if you are around children and/or the elderly, use good hand hygiene and avoid spread by droplets from your mouth or nose when you speak, sneeze or cough as well as when people touch the surfaces around you. Discharge orders & Medications Prescriptions: New valacyclovir 1 gram tablet 1,000 mg PO Q8H Qty: 35 RF: 0 hydrocodone-acetaminophen 5-325 mg tablet 1 tab PO BID PRN (Reason: severe pain) Qty: 7 RF: 0 Continued indomethacin 25 mg capsule 25 mg PO TID RF: 0 losartan 100 mg tablet 100 mg PO DAILY RF: 0 Follow up/Referrals: Ashley Lovelace MD [Primary Care Provider] - As previously scheduled (appt:07/01 @ 9:[address] benitez @ [facility] ) Diet/Activity/Treatments Diet: Low-fat, Low-sodium and Low-cholesterol Activity: Activity as tolerated Visit Report/Discharge Packet Instructions: DI for Viral Meningitis -- Adult, Aseptic Meningitis Discharge Data Primary Care Provider: Ashley Lovelace Quality VTE Deep Vein Thrombosis/Pulmonary Embolism Present on Admission: Yes
[2019-06-26 11:16] VITALS: BP 115/88; PULSE 66; RESP 16; TEMP 36.7; O2SAT 96
--- NOTE | 2019-06-26 15:03 | PC.NURSE ---
Discharge: Pt feels ready to d/c home. Headache minimal at 4, he says he lives with them at that level. Reviewed d/c information and given rx. Questions answered. Pt d/c home via auto w/spouse.
== END 2019-06-26 14:00 | disposition home or self-care (01) | DRG 76 ==
LOC: ED 06-23 04:49 → AC 06-23 04:51 → ICU 06-23 05:53 → ED 06-23 06:28 → ICU 06-23 06:28 → AC 06-23 13:56
PROVIDERS: Internal Medicine; Admitting Provider Nurse Practitioner Adult Health; Emergency Provider Emergency Medicine; PCP Internal Medicine; Visit Provider Nurse Practitioner Adult Health
DX: B00.3 Herpesviral meningitis (principal); G40.A09 Absence epileptic syndrome, not intractable, without status epilepticus; I10 Essential (primary) hypertension
CPT/HCPCS: 36415; 70450; 71045; 80048; 80053; 81001; 81003; 82945; 83605; 83735; 84145; 84157; 85025; 87040; 87070; 87205; 87797; 87798; 89051; 94760; 96361; 96365; 96366; 96367; 96368; 96375; 99284; 99291; J0696; J1650; J1885; J2270; J2405

== ENCOUNTER → 2019-08-14 16:22 | Outpatient (CLI) | payer BC, SELFPAY ==
[2019-06-23 06:21] VITALS: BMI 31.4
--- NOTE | 2019-08-14 16:25 | DI.MRI.S_ITS ---
PROCEDURE: MR LUMBAR SPINE WO/W CON INDICATIONS: WEAKNESS TECHNIQUE: Noncontrast sagittal T1 spin echo and T2 fast spin echo, sagittal STIR, axial T1 and T2 fast spin echo through the lumbar spine. In cases with scoliosis, additional coronal T2 fast spin echo may be performed. After the administration of contrast, sagittal and axial T1 spin echo with fat saturation through the lumbar spine. COMPARISON: [facility], MR, L-SPINE WITHOUT CONTRAST, 05/04/2017, 19:29. FINDINGS: Image quality: Excellent. Alignment and curvature: There is trace L2-L3 retrolisthesis. Marrow: Marrow is of normal overall signal. No acute vertebral body compression fractures. No suspicious marrow enhancement. Spinal cord: Conus medullaris terminates at the L1 level. Visualized spinal cord demonstrates normal signal, without suspicious enhancement. Paraspinous soft tissues: No paravertebral masses or abnormal enhancement. L1-L2: Loss of the signal. Minimal, diffuse disc bulge. No central stenosis. No neural foraminal narrowing. No neural compression. L2-L3: Loss of the signal. Mild, diffuse disc bulge. Mild bilateral facet hypertrophy. Mild narrowing of the central canal. Mild bilateral neural foraminal narrowing. No neural compression. Fissure noted in the posterior annulus. L3-L4: Loss of the signal. Mild diffuse disc bulge. Moderate facet and mild ligamentum flavum. Moderate to severe narrowing of the central canal with slight compression of the traversing nerves the cauda equina. Moderate bilateral neural foraminal narrowing. L4-L5: Loss of disc signal. Mild, diffuse disc bulge. Moderate bilateral facet hypertrophy. Moderate narrowing of the central canal. Moderate bilateral neural foraminal narrowing. No neural compression. Fissure noted in the posterior annulus. L5-S1: Near complete loss of the substance. Small posterior endplate osteophyte. Mild bilateral facet hypertrophy. No central stenosis. Mild bilateral neural foraminal narrowing. No neural compression. IMPRESSION: 1. Multilevel degenerative disc disease. 2. Multilevel facet arthropathy. 3. Moderate to severe L3-L4 central canal narrowing. Moderate L4-L5 central canal narrowing. Mild L2-L3 central canal narrowing. 4. Moderate bilateral L3-L4 and L4-L5 neural foraminal narrowing. Mild bilateral L2-L3 and L5-S1 neural foraminal narrowing. 5. Slight compression of the nerve roots of the cauda equina level the L3-L4 disc. Please correlate with clinical data. 6. L2-L3 and L4-L5 disc annulus fissures. 7. No suspicious postcontrast enhancement. Dictated by: Sarai Saeed MD, PhD on 08/15/2019 at 10:05 Approved by: Sarai Saeed MD, PhD on 08/15/2019 at 10:18
== END ==
PROVIDERS: PCP Internal Medicine; Referring Provider Internal Medicine; Visit Provider Internal Medicine
DX: R53.1 Weakness; M79.672 Pain in left foot; M51.36 Other intervertebral disc degeneration, lumbar region; M51.37 Other intervertebral disc degeneration, lumbosacral region; M48.061 Spinal stenosis, lumbar region without neurogenic claudication; M48.07 Spinal stenosis, lumbosacral region; M47.816 Spondylosis without myelopathy or radiculopathy, lumbar region; M47.817 Spondylosis without myelopathy or radiculopathy, lumbosacral region
CPT/HCPCS: 72158; A9579

== ENCOUNTER 2020-06-18 18:24 | Emergency (ER) | payer BC, SELFPAY ==
[2019-06-23 06:21] VITALS: BMI 31.4
[2020-06-18 18:32] VITALS: BP 144/87; PULSE 84; RESP 18; TEMP 37.3; O2SAT 96
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
[2020-06-18] MEDS: PROPARACAINE 0.5% OPHTH SOL 1 DROPS EYE-BOTH (19:32)
[2020-06-18 20:52] VITALS: BP 152/86; PULSE 71; RESP 16; O2SAT 97
[2020-06-18] MEDS: FLUORESCEIN 1 MG STRIP EYE-LEFT (21:06)
[2020-06-18] MEDS: ERYTHROMYCIN OPHTH 1 GM OINT 1 APPLIC EYE-BOTH (21:18)
== END 2020-06-18 21:34 | disposition home or self-care (01) ==
PROVIDERS: Emergency Provider Emergency Medicine; PCP Internal Medicine
DX: H16.133 Photokeratitis, bilateral (principal)
CPT/HCPCS: 99282

== ENCOUNTER → 2020-10-21 07:10 | Outpatient (CLI) | payer BC, SELFPAY ==
[2019-06-23 06:21] VITALS: BMI 31.4
[2020-10-21 09:09] LABS: Alanine Aminotransferase 60 IU/L (<50); Albumin 4.3 g/dL (3.5-5.0); Albumin Globulin Ratio 1.8 (1.0-2.8); Alkaline Phosphatase 68 U/L (38-126); Aspartate Aminotransferase 46 IU/L (17-59); BUN Creatinine Ratio 17.9 (6-22); Bilirubin Total 0.8 mg/dL (0.2-1.3); Blood Urea Nitrogen 14 mg/dL (9-20); Calcium 9.9 mg/dL (8.4-10.2); Carbon Dioxide 28 mmol/L (22-32); Chloride 106 mmol/L (98-107); Cholesterol 172 mg/dL (140-199); Estimated Glomerular Filt Rate > 60.0 mL/min (>60); Globulin 2.4 g/dL (1.7-4.1); Glucose 103 mg/dL (80-110); HDL Cholesterol 37 mg/dL (40-60); HEMOLYSIS < 15 (0-50); LDL Cholesterol Calculated 90 mg/dL (<100); Potassium 4.5 mmol/L (3.4-5.1); Sodium 141 mmol/L (137-145); Total Protein 6.7 g/dL (6.3-8.2); Triglycerides 223 mg/dL (35-150)
[2020-10-22 08:09] LABS: PSA, Total 0.5 ng/mL (0.0-4.0)
== END ==
PROVIDERS: PCP Internal Medicine; Referring Provider Internal Medicine; Visit Provider Internal Medicine
DX: I10 Essential (primary) hypertension (principal); E78.5 Hyperlipidemia, unspecified; Z12.5 Encounter for screening for malignant neoplasm of prostate
CPT/HCPCS: 36415; 80053; 80061; 84153; 84154

== ENCOUNTER → 2020-11-25 12:43 | Outpatient (CLI) | payer BC, SELFPAY ==
[2019-06-23 06:21] VITALS: BMI 31.4
--- NOTE | 2020-11-25 | DI.US.S_ITS ---
PROCEDURE: US ABDOMEN LIMITED INDICATIONS: EVALUATE FOR HERNIA TECHNIQUE: Real-time focused scanning was performed of the a periumbilical region, with image documentation. COMPARISON: None. FINDINGS: There is a periumbilical hernia is noted measuring overall 2.0 x 1.8 cm. The neck of the hernia sac measures 1.2 x 0.8 cm in diameter. No evidence of bowel involvement. IMPRESSION: Periumbilical hernia contains fat without bowel involvement. Dictated by: Michael Garland M.D. on 11/25/2020 at 17:49 Approved by: Michael Garland M.D. on 11/25/2020 at 17:51
== END ==
PROVIDERS: PCP Family Medicine; Referring Provider Family Medicine; Visit Provider Family Medicine
DX: K42.9 Umbilical hernia without obstruction or gangrene (principal)
CPT/HCPCS: 76705

== ENCOUNTER → 2021-05-19 09:21 | Outpatient (CLI) | payer BC, SELFPAY ==
[2019-06-23 06:21] VITALS: BMI 31.4
[2021-05-19 12:11] LABS: COVID19 -Nasal RAPID Negative (Negative)
== END ==
PROVIDERS: PCP Family Medicine; Visit Provider Physician Assistant
DX: Z20.822 Contact with and (suspected) exposure to COVID-19 (principal)
CPT/HCPCS: 87635

== ENCOUNTER 2021-05-21 11:53 | Day surgery (SDC) | payer BC, SELFPAY ==
[2019-06-23 06:21] VITALS: BMI 31.4
--- NOTE | 2021-05-21 | PATH_ITS ---
[facility] Accession Number: [id number] . 01 Material submitted: . sigmoid colon - SIGMOID COLON POLYP; 8MM / 6MM . 02 Diagnosis: Sigmoid Colon, Polyp 8 mm and 6 mm, Biopsies: Tubular adenoma in two of three fragments. MRV 05/25/2021 1207 Local . 02 Electronically signed: . Angeles Huerta MD, Pathologist NPI- [id number] . 01 Gross description: . SIGMOID COLON POLYP; 8MM / 6MM: Received in formalin are 3 fragment(s) of quinonez, soft tissue measuring 0.4 x 0.4 x 0.3 cm to 0.3 x 0.2 x 0.1 cm submitted entirely in 1 cassette(s) /QBJ 05/22/2021 0409 Local . 02 Pathologist provided ICD-10: D12.5 . 02 CPT . 540924 Performed at: 01 [facility] [address] [facility], [place], [place] [id number] MD Tab Ovalle MD Phone: [phone] Performed at: 02 [facility] [address] [place], [place] [id number] MD Angeles Huerta MD Phone: [phone]
--- NOTE | 2021-05-21 11:56 | PM.PREOP ---
Pre-operative Note COVID-19 COVID-19 status: Negative Interval Note History & Physical reviewed/Exam performed by Physician: Yes Changes to H&P: No ASA Class (for procedural sedation): II
--- NOTE | 2021-05-21 11:56 | PM.OP.COLON ---
Operative Date/Time/Diagnoses Date of procedure: 05/21/21 Procedure Notes SCOAP/Timeout: 1:02 p.m. Procedure in detail: ENDOSCOPIST: Aida Cobian MD Sedation RN: Cristina Silva RN Sedation start time: 1:03 p.m. Sedation end time: 1:19 p.m. PROCEDURE: Colonoscopy with biopsy, cold INDICATIONS: 1. History of colon polyps 2. Family history of colon cancer 3. Screening for colon cancer MEDICATION: Levsin 0.125 mg sublingual, incremental doses of Versed and fentanyl until appropriate level sedation achieved. ASA CLASS: 2 CECAL WITHDRAWAL TIME: 8 minutes COMPLICATIONS: None. EXTENT OF PROCEDURE: Cecum. QUALITY OF PREP: Good with portions of liquid stool. PROCEDURE: Prior to insertion of the colonoscope, a digital rectal examination was accomplished with circumferential palpation of the distal rectal mucosa without significant findings being noted. The high-definition colonoscope was passed into the rectum in the usual fashion and advanced over to the cecum without difficulty. The ileocecal valve, appendiceal stoma, and medial wall all could be inspected and no abnormalities were seen. ASCENDING COLON: As the colonoscope was withdrawn, care was taken to expose and inspect the haustral folds and no abnormalities were seen. HEPATIC FLEXURE: Normal, no polyps, diverticula or other abnormalities. TRANSVERSE COLON: Normal, no polyps, diverticula or other abnormalities. DESCENDING COLON: Normal, no polyps, diverticula or other abnormalities. SIGMOID COLON: Two polyps seen and removed with cold biopsy forceps, 6 and 8 mm. Excellent hemostasis. Otherwise, minor diverticulosis and no other abnormalities. RECTUM: Normal. J maneuver was produced. There was no significant perianal disease. The J maneuver was broken. The remainder of the rectum was inspected and there was no external hemorrhoid disease. The scope was withdrawn. IMPRESSION: 1. Sigmoid polyp x2, 6 and 8 mm, removed with cold biopsy forceps 2. Sigmoid diverticulosis, mild PLAN: 1. Follow-up in clinic status post pathology results. The possibility of a missed lesion including a malignancy has been discussed with the patient previously. Potential alarm symptoms have been discussed and should be reported immediately.
[2021-05-21 12:32] VITALS: BP 132/82; PULSE 68; RESP 18; TEMP 36.4; O2SAT 100; BMI 30.2
[2021-05-21] MEDS: LACTATED RINGERS 1,000 ML 200 ML IV (12:32)
[2021-05-21] MEDS: HYOSCYAMINE 0.125 MG TABLET PO (12:45)
[2021-05-21] MEDS: MIDAZOLAM 5 MG/5 ML VIAL IV (13:09)
[2021-05-21] MEDS: fentaNYL 250 MCG/5 ML INJ IV (13:09)
[2021-05-21 13:22] VITALS: BP 135/88; PULSE 70; RESP 16; TEMP 36.9; O2SAT 96
[2021-05-21 13:27] VITALS: BP 128/84; PULSE 71; RESP 14; O2SAT 94
[2021-05-21 13:32] VITALS: BP 119/76; PULSE 74; RESP 14; O2SAT 96
== END 2021-05-21 13:56 | disposition home or self-care (01) ==
PROVIDERS: PCP Family Medicine; Referring Provider Student in an Organized Health Care Education/Training Program; Visit Provider Student in an Organized Health Care Education/Training Program
PROC: 0DJD8ZZ Inspection of Lower Intestinal Tract, Via Natural or Artificial Opening Endoscopic (ICD-10-PCS; CPT 45378; principal; 2021-05-21 13:00)
DX: Z12.11 Encounter for screening for malignant neoplasm of colon (principal); Z86.010 Personal history of colon polyps; Z80.0 Family history of malignant neoplasm of digestive organs; K57.30 Diverticulosis of large intestine without perforation or abscess without bleeding; D12.5 Benign neoplasm of sigmoid colon
CPT/HCPCS: 45380; J2250; J3010

== ENCOUNTER → 2022-05-11 10:33 | Outpatient (CLI) | payer MEDICARE, BC, SELFPAY ==
[2019-06-23 06:21] VITALS: BMI 31.4
== END ==
PROVIDERS: PCP Family Medicine; Referring Provider Podiatrist; Visit Provider Podiatrist
DX: Z01.818 Encounter for other preprocedural examination (principal)
CPT/HCPCS: 93005

== ENCOUNTER → 2022-06-15 11:19 | Outpatient (CLI) | payer MEDICARE, BC, SELFPAY ==
[2019-06-23 06:21] VITALS: BMI 31.4
[2022-06-15 12:24] LABS: COVID19 -Nasal RAPID Negative (Negative)
== END ==
PROVIDERS: PCP Family Medicine; Referring Provider Podiatrist; Visit Provider Podiatrist
DX: Z20.822 Contact with and (suspected) exposure to COVID-19 (principal)
CPT/HCPCS: 87635; C9803

== ENCOUNTER 2022-06-17 11:55 | Day surgery (SDC) | payer MEDICARE, BC, SELFPAY ==
[2019-06-23 06:21] VITALS: BMI 31.4
[2022-06-17] VITALS (8 sets, daily range): BP systolic 109–172; BP diastolic 61–84; PULSE 59–71; RESP 12–18; TEMP 36.2–36.9; O2SAT 94–100; BMI 29.8
--- NOTE | 2022-06-17 | PATH_ITS ---
[facility] Accession Number: [id number] . 01 Material submitted: . foot - RIGHT FOOT SECOND INTERSPACE NEUROMA . 01 Diagnosis: Right Foot Second Interspace, Biopsies: Consistent with neuroma. [facility] 06/21/[address] [place] [address] . 01 Electronically signed: . Todd Parker MD, Dermatopathologist NPI- [id number] . 01 Gross description: . The specimen is received in formalin, labeled with the patient's name, , and right foot second interspace neuroma, and consists of multiple fragments of cylindrical firm tissue with adherent soft tissue, all aggregating to 1.6 x 1.2 x 0.4 cm. The specimen is submitted intact in cassette A1, to be cut at embedding. ([id number]) /FRR 06/18/20222003 Local . 01 Pathologist provided ICD-10: G57.61 . 01 CPT . 284094 Specimen Comment: A courtesy copy of this report has been sent to [phone] Performed at: 01 [facility] [address] [place] [address], [place], [place] [id number] MD Tab Ovalle MD Phone: [phone]
[2022-06-17] MEDS: LACTATED RINGERS 1,000 ML 42 ML IV (12:45)
--- NOTE | 2022-06-17 13:52 | PM.PREOP ---
Pre-operative Note COVID-19 COVID-19 status: Negative Result date/Date tested (Pos, Neg/Pending): 06/15/22 Interval Note History & Physical reviewed/Exam performed by Physician: Yes Changes to H&P: No
[2022-06-17] MEDS: CEFAZOLIN 2 GM/100 ML PREMIX 100 ML IV (13:59)
[2022-06-17] MEDS: BUPIVACAINE 0.5% (PF) VIAL 30 ML INJ (14:21)
[2022-06-17] MEDS: LIDOCAINE 1% 20 ML INJ (14:22)
--- NOTE | 2022-06-17 14:25 | SUR.OPER ---
Supine on padded OR bed, head on pillow, arms secured on padded arm boards at <90 degrees abduction, legs uncrossed, safety belt at waist, tape over blanket over lower left leg, right leg draped free with gel bump under right gluteus .
--- NOTE | 2022-06-17 15:54 | PM.OP.1 ---
Operative Date/Time/Diagnoses Date of procedure: 06/17/22 Time of procedure: 13:00 Pre-op diagnosis: Right second interspace neuroma Post-op diagnosis: same Procedure & Clinicians Procedure: Right second interspace neuroma Same procedure as scheduled: Yes Indications: 66-year-old male with painful neuroma to the right 2nd interspace on the foot. Conservative measures have failed to alleviate his pain and he wished to have surgical intervention at this time. We spoke the risks, potential complications, alternatives, and expected outcomes of the procedure. Consent was signed, there was no contraindication to the procedure at this time. Surgeon: Josie Garcia Click Yes if Unassisted: Yes Anesthesia Type: General Operative Notes Closure Type: primary Specimen(s): other (Right 2nd interspace neuroma) Estimated Blood Loss (mL): 10 Blood products transfused: none Tourniquet time (min): 20 Procedure in detail: The patient was brought to the operating room and placed on the operating table in the supine position. A tourniquet was placed about the right ankle. Well padded appropriately aligned. After induction of general anesthesia the right foot and ankle were prepped and draped in the usual aseptic manner. The tourniquet was inflated. After check of anesthesia, an incision was made over the dorsal 2nd interspace of the right foot. The incision was deepened through subcutaneous tissues, being careful to identify and retract all vital neural and vascular structures. All bleeders were cauterized and ligated as necessary. The deep transverse intermetatarsal ligament was cleanly resected and this allowed visualization of the underlying interspace. I was able to note the white shiny tissue of the enlarged nerve in the area previously recorded as the location of his recurring symptoms. The nerve was cleanly resected at its most proximal aspect allowing it to retract into the musculature and the 2 distal locations as it fed into the digits. The area was irrigated with copious amounts of normal sterile saline. The specimen was passed from the table and sent to pathology for identification. The tourniquet was deflated to allow for verification of perfusion, and a prompt hyperemic response was seen to the toes. The interspace was verified to show no additional nerve tissue and 4-0 Vicryl was used to repair subcutaneous tissues. Skin closure performed using 4-0 nylon. The area was dressed with a lightly compressive sterile dressing including Adaptic, 4x4s, conform, and Coban. His foot was placed in stockinette and transferred to the PACU with vital signs stable and vascular status intact. His boot will be placed in the PACU or when he gets home as it was still in his car. Complications: none Post-operative Condition: stable Disposition: PACU Plan for aftercare: Following a period of postoperative monitoring, the patient will be discharged to home on written and oral postoperative instructions including keeping the dressing dry and intact, avoiding significant ambulation on the foot, icing and elevating the foot when seated home. DVT prevention techniques have been reviewed. For the 1st postoperative visit the dressing will be changed and close to the 3rd postoperative week we will likely remove the sutures.
== END 2022-06-17 15:51 | disposition home or self-care (01) ==
PROVIDERS: PCP Family Medicine; Referring Provider Podiatrist; Visit Provider Podiatrist
PROC: (CPT 64782; principal; 2022-06-17 13:15)
DX: G57.61 Lesion of plantar nerve, right lower limb (principal)
CPT/HCPCS: 28080; J0690; J2250; J2405; J2704; J3010

== ENCOUNTER 2022-09-09 16:16 | Emergency (ER) | payer MEDICARE, BC, SELFPAY ==
[2019-06-23 06:21] VITALS: BMI 31.4
[2022-09-09 16:26] VITALS: BP 115/68; PULSE 50; RESP 16; TEMP 36.4; O2SAT 98; BMI 29.9
--- NOTE | 2022-09-09 16:40 | DI.CT.S_ITS ---
PROCEDURE: CT KIDNEY URETER BLADDER (KUB) INDICATIONS: r flank pain r/o kidney stone TECHNIQUE: Axial sections were acquired from the lung bases to the pubic symphysis. Coronal and sagittal reformats were performed. For radiation dose reduction, the following was used: automated exposure control, adjustment of mA and/or kV according to patient size. COMPARISON: [facility], CT, KIDNEY/ URETER/BLADDER, 12/14/2015, 8:54. FINDINGS: Image quality: Excellent. Lung bases: Unremarkable. Heart: Mild cardiomegaly. URINARY: Right Kidney: [id number] hydronephrosis. No stone. Perinephric stranding. Right Ureter: A 6 mm stone obstructs the right ureter at the level of L3-L4. It measures 1008 Hounsfield units. Left Kidney: No stones or hydronephrosis. Left Ureter: No hydroureter. Bladder: Normal wall thickness. No stones. ABDOMEN: Liver: Unremarkable. Gallbladder: Unremarkable. Biliary ducts: Unremarkable. Pancreas: Unremarkable. Spleen: Unremarkable. Adrenal Glands: Unremarkable. Stomach and Bowel: Stomach, small bowel loops, and colon are unremarkable. Peritoneum: No abnormal intraperitoneal fluid. No free air. Ventral Wall: No hernia. Abdominal Nodes: No enlarged retroperitoneal or mesenteric lymph nodes. Vessels: Aorta and inferior vena cava are normal in size. PELVIS: Pelvic Organs: Unremarkable. Pelvic Nodes: Unremarkable. Miscellaneous: No inguinal hernias are seen. Bones: Lumbar degenerative change. No lytic or blastic bony lesions. No compression fractures. IMPRESSION: 1. A 6 mm stone obstructs the proximal a a right ureter resulting in [id number] right hydronephrosis. It has a Hounsfield measurement of 1008. 2. Mild cardiomegaly. Dictated by: Ko Newberry M.D. on 09/09/2022 at 17:15 Approved by: Ko Newberry M.D. on 09/09/2022 at 17:18
[2022-09-09] MEDS: SODIUM CHLORIDE 0.9% 1,000 ML 1000 ML IV (16:49)
[2022-09-09] MEDS: KETOROLAC 30 MG/ML VIAL 15 MG IV (16:49)
[2022-09-09] MEDS: ONDANSETRON 4 MG/2 ML INJ IV (16:49)
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
[2022-09-09 17:59] LABS: Add Manual Diff / Slide Review NO; Basophils Absolute Auto 0 /uL (0-100); Basophils Percent Auto 0.4 % (0-2); Eosinophils Absolute Auto 0 /uL (0-450); Eosinophils Percent Auto 0.3 % (2-4); Hematocrit 48.6 % (41-53); Lymphocytes Absolute Auto 3100 /uL (1100-4500); Lymphocytes Percent Auto 28.5 % (25-40); Mean Corpuscular HGB Conc 34.9 % (30-36); Mean Corpuscular Hemoglobin 30.7 PG (26-34); Monocytes Absolute Auto 400 /uL (0-900); Monocytes Percent Auto 3.8 % (3-14); Neutrophils Absolute Auto 7400 /uL (1500-7000); Platelet Count 240 X10^3/uL (150-400); Red Blood Cell Count 5.52 X10^6/uL (4.5-5.9)
[2022-09-09 18:03] LABS: Alanine Aminotransferase 47 IU/L (<50); Albumin 4.4 g/dL (3.5-5.0); Albumin Globulin Ratio 1.6 (1.0-2.8); Alkaline Phosphatase 85 U/L (38-126); Aspartate Aminotransferase 40 IU/L (17-59); BUN Creatinine Ratio 19.4 (6-22); Bilirubin Total 0.6 mg/dL (0.2-1.3); Blood Urea Nitrogen 18 mg/dL (9-20); Calcium 9.1 mg/dL (8.4-10.2); Carbon Dioxide 24 mmol/L (22-32); Chloride 105 mmol/L (98-107); Estimated Glomerular Filt Rate > 60 mL/min (>60); Globulin 2.8 g/dL (1.7-4.1); Glucose 158 mg/dL (80-110); HEMOLYSIS 20 (0-50); Lipase 139 U/L (23-300); Potassium 4.2 mmol/L (3.4-5.1); Sodium 139 mmol/L (137-145); Total Protein 7.2 g/dL (6.3-8.2)
[2022-09-09 18:53] VITALS: BP 117/64; PULSE 60; RESP 16; O2SAT 99
[2022-09-09 19:00] LABS: Mucus Urine 2+ (Negative); RBC Urine 30-100/HPF (0-5/HPF); Squamous Epithelial Cell Urine 1-5 /HPF (0-5/HPF); WBC Urine 1-5/HPF (0-5/HPF)
[2022-09-09 19:01] LABS: Bacteria Urine None Seen
[2022-09-09 19:02] LABS: Culture Indicated Urine Specimen Cultured
== END 2022-09-09 18:58 | disposition home or self-care (01) ==
PROVIDERS: Emergency Provider Registered Nurse; PCP Family Medicine
DX: N20.0 Calculus of kidney (principal); N39.0 Urinary tract infection, site not specified
CPT/HCPCS: 74176; 80053; 81003; 81015; 83690; 85025; 87077; 87086; 87186; 96361; 96374; 96375; 99284; J1885; J2405

== ENCOUNTER 2022-09-12 21:10 | Emergency (ER) | payer MEDICARE, BC, SELFPAY ==
[2019-06-23 06:21] VITALS: BMI 31.4
[2022-09-12 21:15] VITALS: BP 153/70; PULSE 68; RESP 18; TEMP 36.6; O2SAT 94; BMI 29.9
[2022-09-12] MEDS: KETOROLAC 30 MG/ML VIAL 15 MG IV (22:01)
[2022-09-12] MEDS: ONDANSETRON 4 MG/2 ML INJ IV (22:01)
[2022-09-12 22:04] LABS: Alanine Aminotransferase 31 IU/L (<50); Albumin 4.1 g/dL (3.5-5.0); Albumin Globulin Ratio 1.4 (1.0-2.8); Alkaline Phosphatase 84 U/L (38-126); Aspartate Aminotransferase 27 IU/L (17-59); BUN Creatinine Ratio 13.6 (6-22); Blood Urea Nitrogen 17 mg/dL (9-20); Carbon Dioxide 23 mmol/L (22-32); Chloride 101 mmol/L (98-107); Estimated Glomerular Filt Rate > 60 mL/min (>60); Glucose 138 mg/dL (80-110); HEMOLYSIS < 15 (0-50); Sodium 135 mmol/L (137-145); Total Protein 7.1 g/dL (6.3-8.2)
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
[2022-09-12 23:39] LABS: Add Manual Diff / Slide Review NO; Basophils Absolute Auto 0 /uL (0-100); Basophils Percent Auto 0.3 % (0-2); Eosinophils Absolute Auto 0 /uL (0-450); Eosinophils Percent Auto 0.3 % (2-4); Hematocrit 46.3 % (41-53); Hemoglobin 15.9 g/dL (13.5-17.5); Lymphocytes Absolute Auto 1600 /uL (1100-4500); Lymphocytes Percent Auto 14.6 % (25-40); Mean Corpuscular HGB Conc 34.2 % (30-36); Mean Corpuscular Hemoglobin 30.2 PG (26-34); Mean Corpuscular Volume 88.2 fL (80-100); Monocytes Absolute Auto 800 /uL (0-900); Monocytes Percent Auto 7.2 % (3-14); Neutrophils Absolute Auto 8200 /uL (1500-7000); Neutrophils Percent Auto 77.6 % (50-75); Platelet Count 201 X10^3/uL (150-400); Red Blood Cell Count 5.25 X10^6/uL (4.5-5.9); Red Cell Distribution Width 13.1 % (11.6-14.8); White Blood Cell Count 10.6 X10^3/uL (4.5-11.0)
[2022-09-12 23:45] VITALS: BP 125/71; PULSE 64; RESP 20; O2SAT 99
[2022-09-13 00:02] LABS: Bacteria Urine Occasional (0-1); Culture Indicated Urine Cult Not Indicated; Mucus Urine 1+ (Negative); RBC Urine 10-30/HPF (0-5/HPF); Squamous Epithelial Cell Urine 0-1 /HPF (0-5/HPF); WBC Urine 0-1/HPF (0-5/HPF)
== END 2022-09-13 00:13 | disposition home or self-care (01) ==
PROVIDERS: Emergency Provider Emergency Medicine; PCP Family Medicine
DX: N23 Unspecified renal colic (principal); Z87.442 Personal history of urinary calculi
CPT/HCPCS: 36415; 80053; 81003; 81015; 85025; 96374; 96375; 99284; J1885; J2405

== ENCOUNTER 2022-09-15 13:50 | Day surgery (SDC) | payer MEDICARE, BC, SELFPAY ==
[2022-09-14 11:06] VITALS: BMI 31.4
--- NOTE | 2022-09-15 | DI.RAD.S_ITS ---
PROCEDURE: XR KUB INDICATIONS: Right ureteral calculus TECHNIQUE: One view of the abdomen acquired. COMPARISON: [facility], CT, CT KIDNEY URETER BLADDER (KUB), 09/09/2022, 16:43. [facility], CR, KUB XRAY (1 VIEW ABDOMEN), 09/21/2012, 19:27. FINDINGS: Surgical changes and devices: None. Bowel: Bowel gas pattern is normal. Soft tissues: There is a calcification in the right lower pelvis, new compared to 09/09/2022.. Visualized solid organ contours appear normal in size. Bones: No suspicious bony lesions. IMPRESSION: Right lower pelvic calcifications suspected to represent previous right proximal ureteral calcification as more proximal calcification is not clearly identified. Dictated by: Preeti Thornton M.D. on 09/15/2022 at 15:19 Approved by: Preeti Thornton M.D. on 09/15/2022 at 15:20
[2022-09-15 14:26] VITALS: BP 125/79; PULSE 76; RESP 16; TEMP 36.9; O2SAT 98; BMI 29.2
--- NOTE | 2022-09-15 14:41 | PM.PREOP ---
Pre-operative Note COVID-19 Criteria for continued procedure: Expected advancement of disease process, Possibility delay results in more complex future surgery or treatment, Increased loss of function, Continuing or worsening of significant or severe pain, Deterioration of the patient's condition or overall health, Delay expected to result in less-positive ultimate med/surg outcome and Non-surgical alternatives not available or appropriate per current SOC Interval Note History & Physical reviewed/Exam performed by Physician: Yes Changes to H&P: No
[2022-09-15] MEDS: AMPICILLIN/SULBACTAM 3 GM 3 GM in SODIUM CHLORIDE 0.9% 100 ML IV (14:43)
[2022-09-15 14:48] VITALS: BMI 29.2
[2022-09-15] MEDS: LACTATED RINGERS 1,000 ML 21 ML IV (14:54)
[2022-09-15] MEDS: GENTAMICIN 160 MG in SODIUM CHLORIDE 0.9% 100 ML 104 MG IV (15:10)
[2022-09-15] MEDS: ACETAMINOPHEN IV 1,000 MG/100 ML VIAL 400 MG IV (15:31)
--- NOTE | 2022-09-15 15:34 | PM.OP.1 ---
Operative Date/Time/Diagnoses Date of procedure: 09/15/22 Time of procedure: 15:35 Pre-op diagnosis: 1. Obstructing 6 mm right ureteral calculus. 2. E coli UTI. 3. Intractable right renal colic. Post-op diagnosis: same Procedure & Clinicians Procedure: 1. Cystoscopy/right ureteral stone manipulation without removal. 2. Cystoscopy/placement right ureteral stent. Same procedure as scheduled: Yes Indications: 1. Obstructing 6 mm right ureteral calculus. 2. E. coli UTI. 3. Intractable right renal colic. Surgeon: Hank Phipps Click Yes if Unassisted: Yes Anesthesia Type: General Operative Notes Findings: 1. Urethra-normal penile segment. 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 2. External sphincter-coapted with normal overlying urothelium. 3. Prostate-4 cm length with moderate trilobar hyperplasia. There are numerous gold colored mucosal calcifications. 4. Bladder 1 to 2+ trabeculation. Normal ureteral orifices bilaterally. Following advancement of a PI-RADS 0.35 guidewire into the right ureter there was prompt and impressive efflux of thick hemorrhagic material into the bladder lumen. Closure Type: not applicable Specimen(s): none sent Applied: other (Eight [place] by 22-32 cm multi-length stent) Estimated Blood Loss (mL): 0 Blood products transfused: none Procedure in detail: The patient was positioned in supine was administered general anesthesia. He was then repositioned in semi-lithotomy and the lower abdomen, genitalia, and groin were then prepped and draped in sterile fashion. The 22 [place] muhammad endoscope was passed the lower urinary tract with the findings as described above. Next, 0.35 hybrid guidewire was selected and advanced through the working port of the muhammad endoscope and then into the right ureteral orifice. It was then advanced proximally under fluoroscopic control. The stone was positioned at the right ureterovesical junction and had migrated significantly distally since initial CT imaging on 09/09/2022. Next, a 8 [place] by 22-32 cm multi-length ureteral stent was selected and advanced over the hybrid guidewire and advanced proximally under direct and fluoroscopic guidance. NO RETRIEVAL LINE WAS LEFT ATTACHED. The bladder was then partially filled twice and drain to evacuate the purulent and hemorrhagic material. The bladder was drained final time independent scope was removed. The patient was then repositioned in supine, was awakened, transferred to [facility] and then transported recovery in stable condition. Complications: none Post-operative Condition: stable Disposition: PACU Plan for aftercare: Discharge home.
[2022-09-15 15:41] VITALS: PULSE 104; RESP 14; TEMP 37.3; O2SAT 96
--- NOTE | 2022-09-15 15:44 | SUR.OPER ---
Lithotomy on padded OR bed, head on pillow, arms secured on padded arm boards at <90 degrees abduction. Legs secured in padded yellow fins stirrups.
[2022-09-15 15:48] VITALS: BP 105/54; PULSE 79; RESP 30; O2SAT 97
[2022-09-15 15:51] VITALS: BP 111/74; PULSE 94; RESP 28; O2SAT 98
[2022-09-15] MEDS: OXYCODONE IR 5 MG TABLET PO (15:51)
[2022-09-15 15:56] VITALS: BP 111/74; PULSE 75; RESP 18; O2SAT 97
== END 2022-09-15 16:28 | disposition home or self-care (01) ==
PROVIDERS: PCP Family Medicine; Referring Provider Specialist; Visit Provider Specialist
PROC: (CPT 52330; principal; 2022-09-15 14:30)
DX: N20.1 Calculus of ureter (principal); N39.0 Urinary tract infection, site not specified; B96.20 Unspecified Escherichia coli [E. coli] as the cause of diseases classified elsewhere; N17.9 Acute kidney failure, unspecified; N23 Unspecified renal colic; Z87.442 Personal history of urinary calculi
CPT/HCPCS: 52330; 52332; 51798; 74018; 76000; 81002; 82962; 99215; J0131; J0295; J1100; J2250; J2405; J3010

== ENCOUNTER 2022-09-26 11:54 | Day surgery (SDC) | payer MEDICARE, BC, SELFPAY ==
[2022-09-14 11:06] VITALS: BMI 31.4
[2022-09-26 13:22] VITALS: BP 139/78; PULSE 72; RESP 18; TEMP 36.6; O2SAT 99; BMI 29.9
[2022-09-26] MEDS: LACTATED RINGERS 1,000 ML 84 ML IV (13:50)
--- NOTE | 2022-09-26 15:22 | PM.PREOP ---
Pre-operative Note COVID-19 Criteria for continued procedure: Expected advancement of disease process, Possibility delay results in more complex future surgery or treatment, Deterioration of the patient's condition or overall health, Delay expected to result in less-positive ultimate med/surg outcome and Non-surgical alternatives not available or appropriate per current SOC Interval Note History & Physical reviewed/Exam performed by Physician: Yes Changes to H&P: Yes H&P completed within 30 days and has changed as indicated here:: Interval placement of right ureteral stent in manipulation of the stone without removal. The patient's urine culture grew out pansensitive E coli for which he has been treated with oral ciprofloxacin outpatient. The patient presents today for scheduled right ureteroscopic laser lithotripsy and possible right ureteral stent exchange.
[2022-09-26] MEDS: CIPROFLOXACIN 400 MG/200 ML PIGGYBACK 200 MG IV (15:35)
--- NOTE | 2022-09-26 16:01 | SUR.OPER ---
Lithotomy on padded OR bed, head on pillow, arms secured on padded arm boards at <90 degrees abduction. Legs secured in padded yellow fins stirrups.
--- NOTE | 2022-09-26 16:15 | P.OP_ITS ---
Operative Date/Time/Diagnoses Date of procedure: 09/26/22 Time of procedure: 16:16 Pre-op diagnosis: 1. Obstructing 6 mm right ureterovesical junction calculus. 2. History of E coli UTI/right pyelonephritis. 3. Retained right ureteral stent. Post-op diagnosis: same Procedure & Clinicians Procedure: 1. Cystoscopy/right ureteral stent removal. 2. Cystoscopy/right ureteroscopic laser lithotripsy. 3. Cystoscopy/right ureteral stent placement (7 [place] by 22-32 cm multi- length). Same procedure as scheduled: Yes Indications: 1. Obstructing 6 mm right ureterovesical junction calculus. 2. History of E coli UTI/right pyelonephritis. 3. Retained right ureteral stent. Surgeon: Hank Phipps Click Yes if Unassisted: Yes Anesthesia Type: General Operative Notes Findings: 1. Urethra-normal caliber without annular stricture or lesion. 2. External sphincter-coapted no warm overlying urothelium. 3. Prostate-4 cm length with moderately obstructing lateral lobe hyperplasia. 4. [id number]-moderate edema and erythema surrounding the right ureteral orifice with intact right indwelling ureteral stent. Remainder of the bladder unchanged versus 09/12/2022. 5. Right ureter-index calculus was encountered relatively unchanged in position as to preoperative imaging. There was circumferential mucosal erosion and proximal mucosal and submucosal edema in the vicinity. Closure Type: not applicable Specimen(s): none sent Applied: other (Seven [place] times 22-32 cm multilength stent) Estimated Blood Loss (mL): 0 Blood products transfused: none Procedure in detail: The patient was positioned in supine and was administered general anesthesia. He was then repositioned in semi lithotomy and lower abdomen, genitalia, and groin were then prepped and draped in sterile. The 22 [place]ien panendoscope was then passed in lower urinary tract under direct visualization with the findings as described above. An alligator foreign body grasper was then used to engage the distal end of the right ureteral stent and then it was withdrawn out of the urinary tract in its entirety. Next the semi-rigid ureteral scope was prepared it was advanced lower urinary tract and then into the right distal ureter with the findings as described above. A 200 micron laser fiber was requested. Operating room personnel and patient were fitted with laser safety eyewear. Laser lithotripsy was then commenced with excellent subsequent stone fragmentation. Much of the material was cleared from the ureteral lumen using both hydrostatic and mechanical methods. Some tiny material remained adherent to the mucosal lining. Due to the pretreatment findings in the vicinity of the stone, decision was made to replace a ureteral stent. A 0.35 hybrid guidewire was then advanced through the semi-rigid ureteral scope and advanced proximally under direct and fluoroscopic guidance. The semi-rigid ureteroscope was then backloaded off the hybrid guidewire. The hybrid guidewire was then front loaded into the 22 [place] muhammad endoscope in the scope was then advanced proximally back to the level of the right ureteral orifice. Next, a 7 [place] by 22-32 cm multi- length stent was selected and advanced over the hybrid guidewire under direct a nd fluoroscopic guidance. NO RETRIEVAL LINE WAS LEFT ATTACHED. The bladder was then drained completely, and the panendoscope was removed a final time. The patient was then repositioned in supine, awakened, [facility]. Complications: none Post-operative Condition: stable Disposition: PACU Plan for aftercare: Discharge home.
[2022-09-26 16:20] VITALS: BP 133/83; PULSE 95; RESP 22; TEMP 36.1; O2SAT 96
[2022-09-26 16:24] VITALS: BP 119/78; PULSE 68; RESP 12; O2SAT 96
[2022-09-26 16:31] VITALS: BP 125/81; PULSE 75; RESP 14; O2SAT 97
[2022-09-26 16:35] VITALS: BP 121/73; PULSE 70; RESP 14; O2SAT 97
[2022-09-26 17:20] LABS: Appearance Urine UA CLEAR; Bilirubin Urine UA NEGATIVE (NEGATIVE); Color Urine UA YELLOW; Glucose Urine UA NEGATIVE (Negative); Ketones Urine UA NEGATIVE (NEGATIVE); Leukocyte Esterase Urine UA TRACE (NEGATIVE); Nitrite Urine UA NEGATIVE (Negative); Occult Blood Urine UA 3+ (Negative); Protein Urine UA 1+ (Negative); Urobilinogen Urine UA 0.2 E.U./dL (0.2); pH Urine UA 5.5 (4.5-8.0)
[2022-09-26 18:12] LABS: Amorphous Sediment Urine 1+; Bacteria Urine Few (2-10); Culture Indicated Urine Specimen Cultured; RBC Urine 10-30/HPF (0-5/HPF); Squamous Epithelial Cell Urine 0-1 /HPF (0-5/HPF); WBC Urine 0-1/HPF (0-5/HPF)
== END 2022-09-26 17:14 | disposition home or self-care (01) ==
PROVIDERS: PCP Family Medicine; Referring Provider Specialist; Visit Provider Specialist
PROC: (CPT 52356; principal; 2022-09-26 13:45)
DX: N20.1 Calculus of ureter (principal); N39.0 Urinary tract infection, site not specified; B96.20 Unspecified Escherichia coli [E. coli] as the cause of diseases classified elsewhere; Z46.6 Encounter for fitting and adjustment of urinary device; Z96.0 Presence of urogenital implants; N40.0 Benign prostatic hyperplasia without lower urinary tract symptoms
CPT/HCPCS: 52356; 81001; 87086; C1771; J0744; J2250; J2405; J3010

== ENCOUNTER → 2022-11-14 07:49 | Outpatient (CLI) | payer MEDICARE, BC, SELFPAY ==
[2022-09-14 11:06] VITALS: BMI 31.4
[2022-11-14 09:21] LABS: Calcium 9.6 mg/dL (8.4-10.2); Uric Acid 4.5 mg/dL (3.5-8.5)
[2022-11-16 07:34] LABS: Parathyroid Hormone Int 43 pg/mL (15-65)
== END ==
PROVIDERS: PCP Family Medicine; Referring Provider Specialist; Visit Provider Specialist
DX: N23 Unspecified renal colic (principal); Z87.442 Personal history of urinary calculi
CPT/HCPCS: 36415; 82310; 83970; 84550

== ENCOUNTER → 2023-01-16 10:39 | Outpatient (CLI) | payer MEDICARE, BC, SELFPAY ==
[2022-09-14 11:06] VITALS: BMI 31.4
[2023-01-16 13:22] LABS: Prostate Specific Antigen 0.863 ng/mL (0.10-4.00)
== END ==
PROVIDERS: PCP Family Medicine; Referring Provider Specialist; Visit Provider Specialist
DX: N40.1 Benign prostatic hyperplasia with lower urinary tract symptoms (principal); N13.8 Other obstructive and reflux uropathy
CPT/HCPCS: 36415; 84153

== ENCOUNTER → 2023-10-25 10:19 | Outpatient (CLI) | payer MEDICARE, BC, SELFPAY ==
[2022-09-14 11:06] VITALS: BMI 31.4
--- NOTE | 2023-10-25 10:21 | DI.RAD.S_ITS ---
PROCEDURE: XR KUB INDICATIONS: cholilethiasis TECHNIQUE: One view of the abdomen acquired. COMPARISON: [facility], CR, XR KUB, 09/15/2022, 15:18. [facility], CR, KUB XRAY (1 VIEW ABDOMEN), 09/21/2012, 19:27. FINDINGS: Surgical changes and devices: None. Bowel: Bowel gas pattern is unremarkable. Soft tissues: No suspicious abdominal calcifications on today's study. Visualized solid organ contours appear unremarkable. Bones: No suspicious bony lesions. IMPRESSION: No acute findings Note that plain radiography has low sensitivity for gallstones and urinary stones. If strong clinical suspicion remains, CT may provide additional diagnostic benefit. Dictated by: Rohith Btaista M.D. on 10/25/2023 at 12:30 Approved by: Rohith Batista M.D. on 10/25/2023 at 12:34
== END ==
LOC: LAB 10:20
PROVIDERS: PCP Family Medicine; Referring Provider Specialist; Visit Provider Specialist
DX: N20.0 Calculus of kidney (principal); R97.20 Elevated prostate specific antigen [PSA]
CPT/HCPCS: 74018; 84153